=== PATIENT | female | born 1955 | race Caucasian/White ===

== ENCOUNTER 2018-06-08 12:41 | Inpatient (IN) | payer MEDICAID ==
[~2018-06-08] VITALS: Ht 162.6 cm; Wt 63.7 kg
[2018-06-08 12:50] VITALS: BP 140/76
--- NOTE | 2018-06-08 12:50 | NUR ---
ED Nurse Note: PT BROUGHT IN BY AMBULANCE FROM [facility]. AOX3 - PT NOT ORIENTED TO TIME. PER EMS, PT C/O 3 EPISODES OF DIARRHEA X LAST NIGHT. EMS REPORTS PT C/O LEFT KNEE PAIN AFTER FALL BUT PT DENIES FALL AND DENIES ANY PAIN AT THIS TIME. ABDOMEN NONDISTENDED AND NONTENDER TO PALPATION. ACTIVE BOWEL SOUNDS IN ALL QUADRANTS.
[2018-06-08] MEDS ORDERED: LITHIUM CARBON300 MG ORAL ×2 (12:57)
[2018-06-08] MEDS ORDERED: CHANTIX0.5 MG PO (12:57)
[2018-06-08] MEDS ORDERED: NICODERM 7MG/24H1 EA TD (12:57)
[2018-06-08] MEDS ORDERED: RISPERDAL2 MG ORAL (12:57)
[2018-06-08] MEDS ORDERED: LORAZEPAM1 MG ORAL (12:57)
[2018-06-08] MEDS ORDERED: BENZTROPINE ME0.5 MG PO (12:57)
[2018-06-08 13:50] LABS: BASOPHILS % (AUTO) 0.9 % (0.0-2.0); EOSINOPHILS % (AUTO) 1.1 % (0.0-3.0); HEMATOCRIT 45.2 % (37.0-47.0); HEMOGLOBIN 14.3 G/DL (12.0-16.0); LYMPHOCYTES % (AUTO) 14.4 % (20.0-45.0); MEAN CORPUSCULAR VOLUME 92 FL (80-99); MONOCYTES % (AUTO) 6.4 % (1.0-10.0); NEUTROPHILS % (AUTO) 77.2 % (45.0-75.0); PLATELET COUNT 231 K/UL (150-450); RED BLOOD COUNT 4.89 M/UL (4.20-5.40); WHITE BLOOD COUNT 12.2 K/UL (4.8-10.8)
--- NOTE | 2018-06-08 13:50 | NUR ---
ED Nurse Note: XRAY AT BEDSIDE.
[2018-06-08 14:00] LABS: ANION GAP 8 mmol/L (5-15); BLOOD UREA NITROGEN 11 mg/dL (7-18); CARBON DIOXIDE 27 MMOL/L (21-32); CHLORIDE 104 MMOL/L (98-107); CREATININE 0.7 MG/DL (0.55-1.30); POTASSIUM 3.6 MMOL/L (3.5-5.1); SODIUM 139 MMOL/L (136-145)
[2018-06-08 14:11] LABS: ALANINE AMINOTRANSFERASE 13 U/L (12-78); ALBUMIN 3.5 G/DL (3.4-5.0); ALBUMIN/GLOBULIN RATIO 0.9 (1.0-2.7); ALKALINE PHOSPHATASE 85 U/L (46-116); ASPARTATE AMINO TRANSFERASE 13 U/L (15-37); BILIRUBIN,TOTAL 0.5 MG/DL (0.2-1.0); CKMB 0.7 NG/ML (0.0-3.6); CREATINE KINASE 48 U/L (26-308)
--- NOTE | 2018-06-08 14:32 | Emergency Room Report ---
History of Present Illness General Chief Complaint: Diarrhea Source: Patient, Medical Record Present Illness HPI Patient presents with complaints of increased diarrhea decreased oral intake with nausea denies any chest pain or shortness of breath denies any vomiting Patient reports that she has progressively become more weak over the past few days Denies any dysuria or frequency denies any recent travel or trauma denies any blood in the stool denies any abdominal pain or cramping Allergies: Coded Allergies: No Known Allergies (Unverified , 06/08/18) Patient History Past Medical History: see triage record Pertinent Family History: none Reviewed Nursing Documentation: PMH: Agreed; PSxH: Agreed Nursing Documentation-PM Past Medical History: No History, Except For History Of Psychiatric Problem: Yes - Bipolar Hx Neurological Problems: Yes - Dementia Review of Systems All Other Systems: negative except mentioned in HPI Physical Exam Vital Signs Date Time Temp Pulse Resp B/P (MAP) Pulse Ox O2 Delivery O2 Flow Rate FiO2 06/08/18 12:45 97.5 75 14 134/73 94 Room Air Sp02 EP Interpretation: reviewed, normal General Appearance: well appearing, no apparent distress Head: normocephalic, atraumatic Eyes: bilateral eye PERRL, bilateral eye EOMI ENT: hearing grossly normal, TMs + canals normal, uvula midline, dry mucus membranes Neck: full range of motion, supple, no meningismus, no bony tend Respiratory: lungs clear, normal breath sounds, no rhonchi, no respiratory distress, no retraction, no accessory muscle use Cardiovascular #1: normal peripheral pulses, regular rate, rhythm, no edema, no gallop, no JVD, no murmur Gastrointestinal: normal bowel sounds, non tender, soft, no mass, no organomegaly, non-distended, no guarding, no hernia, no pulsatile mass, no rebound Genitourinary: no CVA tenderness Musculoskeletal: normal inspection Neurologic: oriented x3, responsive, delivery driver/customer service III-XII nml as tested, motor strength/ tone normal, sensory intact Psychiatric: other - flat affect Skin: normal color, no rash, warm/dry, palpation normal Lymphatic: normal inspection, no adenopathy Medical Decision Making Diagnostic Impression: Primary Impression: Diarrhea Additional Impressions: Dehydration Weakness ER Course Patient presents with multiple differentials Patient is complex requiring multiple blood work Differentials including but not limited to C. difficile, dehydration, diverticulitis Patient's blood work thus far are normal however patient has progressive weakness Is unable to ambulate and requires further inpatient care Labs Test 06/08/18 13:25 White Blood Count 12.2 K/UL (4.8-10.8) Red Blood Count 4.89 M/UL (4.20-5.40) Hemoglobin 14.3 G/DL (12.0-16.0) Hematocrit 45.2 % (37.0-47.0) Mean Corpuscular Volume 92 FL (80-99) Mean Corpuscular Hemoglobin 29.2 PG (27.0-31.0) Mean Corpuscular Hemoglobin Concent 31.6 G/DL (32.0-36.0) Red Cell Distribution Width 11.0 % (11.6-14.8) Platelet Count 231 K/UL (150-450) Mean Platelet Volume 7.7 FL (6.5-10.1) Neutrophils (%) (Auto) 77.2 % (45.0-75.0) Lymphocytes (%) (Auto) 14.4 % (20.0-45.0) Monocytes (%) (Auto) 6.4 % (1.0-10.0) Eosinophils (%) (Auto) 1.1 % (0.0-3.0) Basophils (%) (Auto) 0.9 % (0.0-2.0) Sodium Level 139 MMOL/L (136-145) Potassium Level 3.6 MMOL/L (3.5-5.1) Chloride Level 104 MMOL/L (98-107) Carbon Dioxide Level 27 MMOL/L (21-32) Anion Gap 8 mmol/L (5-15) Blood Urea Nitrogen 11 mg/dL (7-18) Creatinine 0.7 MG/DL (0.55-1.30) Estimat Glomerular Filtration Rate > 60 mL/min (>60) Glucose Level 92 MG/DL (74-106) Lactic Acid Level 0.80 mmol/L (0.4-2.0) Calcium Level 10.0 MG/DL (8.5-10.1) Total Bilirubin 0.5 MG/DL (0.2-1.0) Aspartate Amino Transf (AST/SGOT) 13 U/L (15-37) Alanine Aminotransferase (ALT/SGPT) 13 U/L (12-78) Alkaline Phosphatase 85 U/L (46-116) Total Creatine Kinase 48 U/L (26-308) Creatine Kinase MB 0.7 NG/ML (0.0-3.6) Creatine Kinase MB Relative Index 1.4 Troponin I 0.000 ng/mL (0.000-0.056) Total Protein 7.5 G/DL (6.4-8.2) Albumin 3.5 G/DL (3.4-5.0) Globulin 4.0 g/dL Albumin/Globulin Ratio 0.9 (1.0-2.7) Lipase 51 U/L (73-393) Rhythm Strip Diag. Results EP Interpretation: yes Rate: 60 Rhythm: NSR, no PVC's, no ectopy Chest X-Ray Diagnostic Results Chest X-Ray Diagnostic Results : Chest X-Ray Ordered: Yes # of Views/Limited/Complete: 1 View Indication: Chest Pain EP Interpretation: Yes Interpretation: no consolidation, no effusion, no pneumothorax Impression: No acute disease Electronically Signed by: Casper Devlin DO Last Vital Signs Date Time Temp Pulse Resp B/P (MAP) Pulse Ox O2 Delivery O2 Flow Rate FiO2 06/08/18 12:50 97.9 75 15 140/76 97 Room Air Status: improved Disposition: ADMITTED INPATIENT Condition: Serious Referrals: NON PHYSICIAN (PCP) Casper Devlin DO Jun 08, 2018 14:32
--- NOTE | 2018-06-08 14:33 | NUR ---
ED Nurse Note: URINE COLLECTED AND SENT TO LAB.
[2018-06-08 14:37] VITALS: BP 129/68
[2018-06-08 15:05] LABS: APPEARANCE,URINE CLEAR; BILIRUBIN, URINE NEGATIVE (NEGATIVE); GLUCOSE, URINE (UA) NEGATIVE (NEGATIVE); KETONES,URINE 2+ (NEGATIVE); LEUKOCYTE ESTERASE ,URINE 1+ (NEGATIVE); NITRITE,URINE NEGATIVE (NEGATIVE); PH,URINE 7 (4.5-8.0); PROTEIN,URINE NEGATIVE (NEGATIVE); UROBILINOGEN,URINE 1 MG/DL (0.0-1.0)
[2018-06-08 15:06] LABS: COLOR,URINE YELLOW
[2018-06-08 16:16] VITALS: BP 130/70
--- NOTE | 2018-06-08 16:19 | Diagnostic Imaging Report ---
Indication: Shortness of breath Technique: One view of the chest Comparison: none Findings: There is equivocal mild interstitial congestion. The heart size is upper limits normal. No focal airspace consolidation. Pleural spaces are clear. Impression: Equivocal mild interstitial congestion
--- NOTE | 2018-06-08 17:38 | NUR ---
ED Nurse Note: PER [facility] CHARGE, [facility] NOT READY TO ACCEPT PT. WILL CALL BACK IN 10 MINUTES.
--- NOTE | 2018-06-08 18:01 | NUR ---
ED Nurse Note: [facility] CALLED FOR PT REPORT. REPORT GIVEN TO [facility]OU[facility]. PT TAKEN UP TO [facility] VIA GURNEY WITH ALL BELONGINGS ACCOMPANIED BY EMT. VSS.
[2018-06-08 18:20] VITALS: BP 140/77
--- NOTE | 2018-06-08 18:49 | NUR ---
NURSE NOTES: Patient arrived to the unite around 182. Vitals taken upon arraival to the unite. IV R-Hand flushes well. Skin intact. Transporter left patient in room without signing the belonging list, I called ER so that the transporter to comeback so that we sign the belonging lists. On the list its indicated that patient has reading glass, however the items patient transferred with doesn't have the glass. I called ER so that the nurse who filled out the list to sign the paper, Lier came to the floor and removed the glass as not part of belongings. Liner stated patient said she has reading glass, however nurse didn't see the glass. So reading glass isn't part of the belongings. Skin intact. Bed at lowest position, side rails up x2, breaks engaged. Will keep monitoring.
--- NOTE | 2018-06-08 19:48 | NUR ---
HAND-OFF: Report given to [facility] Osullivan.
[2018-06-08 20:00] VITALS: BP 148/84
[2018-06-08] MEDS ORDERED: Acetaminophen 500mg (ES) tab ORAL PRN (20:00)
--- NOTE | 2018-06-08 20:10 | NUR ---
NURSE NOTES: Patient in bed asleep easily arousable to name, no s/s distress noted. Pt stated she had last diarrhea last night, denies any discomfort/abdominal pain. Received orders from Dr Knowles, noted and carried out.
--- NOTE | 2018-06-08 21:15 | NUR ---
NURSE NOTES: Spoke to Dr Randall, received order to continue SNF pysch medications.
[2018-06-08] MEDS: LORazepam 1mg tab ORAL SCH (22:11)
[2018-06-09] VITALS (9 sets, daily range): BP systolic 105–141; BP diastolic 57–106
[2018-06-09 07:03] LABS: EOSINOPHILS % (AUTO) 3.6 % (0.0-3.0); HEMATOCRIT 39.9 % (37.0-47.0); HEMOGLOBIN 13.1 G/DL (12.0-16.0); LYMPHOCYTES % (AUTO) 24.9 % (20.0-45.0); MEAN CORPUSCULAR VOLUME 92 FL (80-99); MONOCYTES % (AUTO) 7.4 % (1.0-10.0); NEUTROPHILS % (AUTO) 63.1 % (45.0-75.0); PLATELET COUNT 218 K/UL (150-450); RED BLOOD COUNT 4.34 M/UL (4.20-5.40); RED CELL DISTRIBUTION WIDTH 10.9 % (11.6-14.8); WHITE BLOOD COUNT 9.6 K/UL (4.8-10.8)
--- NOTE | 2018-06-09 07:08 | NUR ---
HAND-OFF: Report given to Jeana BEVERLY.
--- NOTE | 2018-06-09 07:15 | NUR ---
NURSE NOTES: Patient asleep, on room air, no sign of distress and shortness of breath. IV R-Hand flush well. Bed at lowest position, side rails up, breaks engaged. Call light within reach. Will keep monitoring.
[2018-06-09 07:23] LABS: ALANINE AMINOTRANSFERASE 12 U/L (12-78); ALBUMIN 3.1 G/DL (3.4-5.0); ALBUMIN/GLOBULIN RATIO 0.9 (1.0-2.7); ALKALINE PHOSPHATASE 74 U/L (46-116); ANION GAP 8 mmol/L (5-15); ASPARTATE AMINO TRANSFERASE 13 U/L (15-37); BILIRUBIN,TOTAL 0.5 MG/DL (0.2-1.0); BLOOD UREA NITROGEN 9 mg/dL (7-18); CALCIUM 9.3 MG/DL (8.5-10.1); CARBON DIOXIDE 26 MMOL/L (21-32); CHLORIDE 108 MMOL/L (98-107); CREATININE 0.7 MG/DL (0.55-1.30); POTASSIUM 3.7 MMOL/L (3.5-5.1); SODIUM 142 MMOL/L (136-145)
[2018-06-09] MEDS: LORazepam 1mg tab ORAL SCH ×2 (09:13→17:23)
--- NOTE | 2018-06-09 11:40 | Consultation ---
History of Present Illness General Chief Complaint: Diarrhea Present Illness HPI 62 yo female with hx of schizoaffective do who presents with complaints of increased diarrhea and n. the pt was agitated and pacing around the unit. The pt is easily agitated and not following the commands. the pt is unable to understand, process or appreciate the info given to her. the pt is delusional and disorganized. Allergies: Coded Allergies: No Known Allergies (Unverified , 06/08/18) Medication History Scheduled Benztropine Mesylate* (Cogentin*), 0.5 MG PO BID, (Reported) [place] Carbonate* ([place]*), 300 MG ORAL DAILY, (Reported) [place] Carbonate* ([place]*), 600 MG ORAL BEDTIME, (Reported) Lorazepam* (Lorazepam*), 1 MG ORAL BID, (Reported) Nicotine (Nicotine Patch), 7 MG TD DAILY, (Reported) Risperidone* (Risperdal*), 2 MG ORAL BID, (Reported) Varenicline Tartrate (Chantix), 0.5 MG PO BID, (Reported) Patient History Limited by: medical condition History Provided By: Medical Record, PMD Healthcare decision maker Resuscitation status Advanced Directive on File Past Medical/Surgical History Past Medical/Surgical History: (1) Weakness (2) Dehydration (3) Diarrhea Review of Systems Psychiatric: Reports: prior hx, anxiety, depressed feelings, hallucinations Physical Exam General Appearance: alert, confused, severe distress, agitated Last 24 Hour Vital Signs Date Time Temp Pulse Resp B/P (MAP) Pulse Ox O2 Delivery O2 Flow Rate FiO2 06/09/18 09:00 Room Air 06/09/18 08:00 98.0 64 18 127/71 (89) 99 06/09/18 04:00 98.1 65 18 105/60 (75) 95 06/09/18 00:00 97.5 63 20 108/72 (84) 95 06/08/18 21:00 Room Air 06/08/18 20:00 97.2 82 18 148/84 (105) 99 06/08/18 20:00 Room Air 06/08/18 18:20 97.9 91 18 140/77 (98) 96 06/08/18 17:59 98.2 72 21 126/70 98 Room Air 06/08/18 16:16 98.0 68 18 130/70 100 Room Air 06/08/18 14:37 98.0 65 16 129/68 100 Room Air 06/08/18 12:50 97.9 75 15 140/76 97 Room Air 06/08/18 12:45 97.5 75 14 134/73 94 Room Air Intake and Output 06/08/18 06/09/18 19:00 07:00 Intake Total 1000 ml 240 ml Balance 1000 ml 240 ml Intake Oral 240 ml IV Total 1000 ml # Voids 1 2 Laboratory Tests Test 06/08/18 13:25 06/08/18 14:25 06/09/18 05:10 White Blood Count 12.2 K/UL (4.8-10.8) H 9.6 K/UL (4.8-10.8) Red Blood Count 4.89 M/UL (4.20-5.40) 4.34 M/UL (4.20-5.40) Hemoglobin 14.3 G/DL (12.0-16.0) 13.1 G/DL (12.0-16.0) Hematocrit 45.2 % (37.0-47.0) 39.9 % (37.0-47.0) Mean Corpuscular Volume 92 FL (80-99) 92 FL (80-99) Mean Corpuscular Hemoglobin 29.2 PG (27.0-31.0) 30.2 PG (27.0-31.0) Mean Corpuscular Hemoglobin Concent 31.6 G/DL (32.0-36.0) L 32.8 G/DL (32.0-36.0) Red Cell Distribution Width 11.0 % (11.6-14.8) L 10.9 % (11.6-14.8) L Platelet Count 231 K/UL (150-450) 218 K/UL (150-450) Mean Platelet Volume 7.7 FL (6.5-10.1) 7.7 FL (6.5-10.1) Neutrophils (%) (Auto) 77.2 % (45.0-75.0) H 63.1 % (45.0-75.0) Lymphocytes (%) (Auto) 14.4 % (20.0-45.0) L 24.9 % (20.0-45.0) Monocytes (%) (Auto) 6.4 % (1.0-10.0) 7.4 % (1.0-10.0) Eosinophils (%) (Auto) 1.1 % (0.0-3.0) 3.6 % (0.0-3.0) H Basophils (%) (Auto) 0.9 % (0.0-2.0) 1.0 % (0.0-2.0) Sodium Level 139 MMOL/L (136-145) 142 MMOL/L (136-145) Potassium Level 3.6 MMOL/L (3.5-5.1) 3.7 MMOL/L (3.5-5.1) Chloride Level 104 MMOL/L (98-107) 108 MMOL/L (98-107) H Carbon Dioxide Level 27 MMOL/L (21-32) 26 MMOL/L (21-32) Anion Gap 8 mmol/L (5-15) 8 mmol/L (5-15) Blood Urea Nitrogen 11 mg/dL (7-18) 9 mg/dL (7-18) Creatinine 0.7 MG/DL (0.55-1.30) 0.7 MG/DL (0.55-1.30) Estimat Glomerular Filtration Rate > 60 mL/min (>60) > 60 mL/min (>60) Glucose Level 92 MG/DL (74-106) 85 MG/DL (74-106) Lactic Acid Level 0.80 mmol/L (0.4-2.0) Calcium Level 10.0 MG/DL (8.5-10.1) 9.3 MG/DL (8.5-10.1) Total Bilirubin 0.5 MG/DL (0.2-1.0) 0.5 MG/DL (0.2-1.0) Aspartate Amino Transf (AST/SGOT) 13 U/L (15-37) L 13 U/L (15-37) L Alanine Aminotransferase (ALT/SGPT) 13 U/L (12-78) 12 U/L (12-78) Alkaline Phosphatase 85 U/L (46-116) 74 U/L (46-116) Total Creatine Kinase 48 U/L (26-308) Creatine Kinase MB 0.7 NG/ML (0.0-3.6) Creatine Kinase MB Relative Index 1.4 Troponin I 0.000 ng/mL (0.000-0.056) Total Protein 7.5 G/DL (6.4-8.2) 6.6 G/DL (6.4-8.2) Albumin 3.5 G/DL (3.4-5.0) 3.1 G/DL (3.4-5.0) L Globulin 4.0 g/dL 3.5 g/dL Albumin/Globulin Ratio 0.9 (1.0-2.7) L 0.9 (1.0-2.7) L Lipase 51 U/L (73-393) L Urine Color Yellow Urine Appearance Clear Urine pH 7 (4.5-8.0) Urine Specific [place] 1.005 (1.005-1.035) Urine Protein Negative (NEGATIVE) Urine Glucose (UA) Negative (NEGATIVE) Urine Ketones 2+ (NEGATIVE) H Urine Blood Negative (NEGATIVE) Urine Nitrite Negative (NEGATIVE) Urine Bilirubin Negative (NEGATIVE) Urine Urobilinogen 1 MG/DL (0.0-1.0) H Urine Leukocyte Esterase 1+ (NEGATIVE) H Urine RBC 0-2 /HPF (0 - 2) Urine WBC 0-2 /HPF (0 - 2) Urine Squamous Epithelial Cells Few /LPF (NONE/OCC) Urine Bacteria Few /HPF (NONE) Height (Feet): 5 Height (Inches): 4.00 Weight (Pounds): 140 Medications Current Medications Medications (Trade) Dose Ordered Sig/Marina Route PRN Reason Start Time Stop Time Status Last Admin Dose Admin Acetaminophen (Tylenol) 500 mg Q4H PRN ORAL Mild Pain/Temp > 100.5 06/08/18 20:00 07/08/18 19:59 Diphenhydramine HCl (Benadryl) 50 mg ONCE ONCE IM 06/09/18 11:45 06/09/18 11:46 UNV Haloperidol Lactate (Haldol) 10 mg ONCE ONCE IM 06/09/18 11:45 06/09/18 11:46 UNV [place] Carbonate ([place] Carbonate) 300 mg DAILY ORAL 06/09/18 09:00 07/09/18 08:59 06/09/18 09:13 [place] Carbonate ([place] Carbonate) 600 mg BEDTIME ORAL 06/09/18 21:00 07/09/18 20:59 Lorazepam (Ativan 2mg/ml 1ml) 2 mg ONCE ONCE IM 06/09/18 11:45 06/09/18 11:46 UNV Lorazepam (Ativan) 1 mg BID ORAL 06/08/18 22:00 06/15/18 21:59 06/09/18 09:13 Risperidone (RisperDAL) 2 mg BID ORAL 06/08/18 22:00 07/08/18 21:59 06/09/18 09:13 Assessment/Plan Problem List: (1) Schizoaffective disorder, bipolar type ICD Codes: F25.0 - Schizoaffective disorder, bipolar type SNOMED: 71060695 Assessment/Plan risperdal 2mg po bid lithium 300mg po qam lithium 600mg po qhs ativan prn the pt lacks capacity to leave ama lithium level Bradford Randall MD Jun 09, 2018 11:40
[2018-06-09] MEDS ORDERED: LORazepam Inj 2mg/ml 1ml IM SCH (11:45)
[2018-06-09] MEDS ORDERED: Haloperidol 5mg/ml Inj IM SCH (11:45)
[2018-06-09] MEDS ORDERED: DiphenhydrAMINE 50mg/ml Inj IM SCH (11:45)
--- NOTE | 2018-06-09 14:44 | NUR ---
HAND WORKERACTIVITIES AIDE 62 YO FEMALE BIBA FROM [facility] TO ER CC DIARRHEA X TWO DAYS SI: DIARRHEA, DEHYDRATION T. 97.6 HR 75 RR 14 B/P 134/73 WBC 12.2 CXR= EQUIVOCAL MILD INTERSTITIAL CONGESTION IS: IV BOLUS NS X 1 LITER ADMITTED TO MED/SURG @ 2187 MED/SURG STATUS DCP RETURN HOME
--- NOTE | 2018-06-09 15:20 | NUR ---
CHARGE NURSE NOTES: PATIENT FELL AT 1515 IN SIDE LYING POSITION, LANDING ON ARM/THIGH. PATIENT DID NOT HIT HEAD. THIS RN WITNESSED FALL. THIS RN WAS ACROSS HALLWAY AND TURNED AROUND AND SAW PATIENT FALL (PATIENT WAS ALREADY STANDING AND WALKING TOWARDS BATHROOM WHEN THIS RN TURNED AROUND). PATIENT HAD GOTTEN UP TO USE RESTROOM BUT WEAK. PATIENT WAS NOT ON OLLIE BED AND WAS PREVIOUSLY AMBULATING IN UNIT ALL MORNING, ASKING TO BE DISCHARGED. PATIENT STATING ARM HURTS, NOTIFIED THAT PATIENT FELL ON ARM AND XRAY ORDERED. POST FALL ASSESSMENT WILL BE DONE. PRIMARY RN NOTIFIED. DR. RAJPUT AND NEWS INTERN KEVIN TROY MADE AWARE. AFTER SAFELY GETTING PATIENT BACK IN BED, CHANGED PATIENT ROOM CLOSER TO NURSES STATION AND PUT ON OLLIE BED WITH BED ALARM ON. WILL CONTINUE TO MONITOR.
--- NOTE | 2018-06-09 16:15 | NUR ---
*-* INSURANCE *-* ALL CLINICALS AND REVIEWS FAXED TO: IPA: [facility] NEW DAY ADMISSION REPORTED TO DANI [phone] AUTH#: PND NCM: PND F#: [phone] PLEASE FAX CLINICALS TO ABOVE #
--- NOTE | 2018-06-09 16:19 | NUR ---
NURSE NOTES: Patient's next of kin, Patricia Magana, notified regarding patient's fall.
--- NOTE | 2018-06-09 17:40 | Cardiology Report ---
APPROVED REPORT EKG Measurement Heart [id number] VT [id number] Normal sinus rhythm Normal ECG
--- NOTE | 2018-06-09 19:17 | NUR ---
HAND-OFF: Report given to [facility] Skinner.
--- NOTE | 2018-06-09 19:38 | NUR ---
NURSE NOTES: Patient resting in bed, awake and alert, no s/s acute distress noted. Denies any pain or discomfort at this time. Sitter at the bedside for safety. Bed in lowest position for safety, bed alarm on. Will continue plan of care.
--- NOTE | 2018-06-09 20:00 | Consultation ---
DATE OF CONSULTATION: 06/09/2018 NOTE: UNCLEAR AUDIO INFECTIOUS DISEASE CONSULT CONSULTING PHYSICIAN: Josh Shaffer M.D. PRIMARY ATTENDING PHYSICIAN: Casper Knowles M.D. REASON FOR CONSULT: Diarrhea. HISTORY OF PRESENT ILLNESS: This is a 62-year-old white female who is a half-way resident admitted yesterday because of diarrhea, decreased oral intake, and mild leukocytosis at the time of admission. She has a history of psychiatric problem and not a source of history. PAST MEDICAL HISTORY: Significant for schizoaffective bipolar disorder. ALLERGIES: No known drug allergy. MEDICATIONS: [place], lorazepam, and Tylenol. SOCIAL HISTORY: Single, half-way resident. No other history obtainable. PHYSICAL EXAMINATION: VITAL SIGNS: Temperature 97.4,, and blood pressure 124/92. GENERAL APPEARANCE: Seems to have normal weight. No acute distress. HEAD AND NECK: [place] conjunctivae. HEART: Normal rate. LUNGS: Clear. ABDOMEN: Soft and nontender. EXTREMITIES: No edema. LABORATORY AND DIAGNOSTIC DATA: WBC today is 9.6, hemoglobin 13.1, hematocrit 39.9, and platelets 218. Sodium 142, potassium 3.7, chloride 108, bicarbonate 26, BUN 9, and creatinine 0.7. UA showed wbc's of 0-2. IMPRESSION: 1. Diarrhea. 2. Leukocytosis that is resolved. 3. Schizoaffective bipolar disorder. RECOMMENDATION: Observe off antibiotics. We will follow C. difficile toxin test, MRSA screen, VRE screen and CRE screen. At the end of my exam, I thank Dr. Knowles for involving me in the care of this patient. Josh Shaffer M.D. DR: GREGORY JOB#: [id number] CC: SANDHYA
[2018-06-10] VITALS: BP 118/69
[2018-06-10 03:46] VITALS: BP 115/57
--- NOTE | 2018-06-10 05:00 | History and Physical Report ---
DATE OF ADMISSION: 06/08/2018 HISTORY OF PRESENT ILLNESS: The patient is admitted because of diarrhea and dehydration. The patient was also on psychotropic medications, apparently agitated, pacing in the hallway, and Dr. Randall has ordered a cocktail. I think the patient gets associated, but incoherent, and I cannot get any reliable history from her due to given the psychotropic medicine for help due to her agitation, but apparently the patient originally came in because of increased diarrhea and decreased oral intake with nausea and denies any shortness of breath. Denies cough. Denies fever or chills. Denies any dysuria as well. PAST MEDICAL HISTORY: Bipolar, dementia, and possible psychosis. PAST SURGICAL HISTORY: Unable to obtain. ALLERGIES: No known allergies. SOCIAL HISTORY: Unable to obtain. REVIEW OF SYSTEMS: Unable to obtain. The patient for agitation was given a cocktail. Due to the psychotropic medicine, it has just been recently administered. PHYSICAL EXAMINATION: VITAL SIGNS: Temperature 97.7 degrees, pulse is 78, and blood pressure 140/90. HEENT: PERRLA. NECK: Supple. No lymphadenopathy. CHEST: Clear to auscultation CARDIOVASCULAR: Regular rate and rhythm. No murmurs or extra sounds. GASTROINTESTINAL: Soft and nontender. Positive bowel sounds. No organomegaly. EXTREMITIES: No edema. Reflexes on both sides. CENTRAL NERVOUS SYSTEM: The patient has garbled speech because of psychotropic medications and is confused, and I cannot get any reliable history at this point. LABORATORY DATA: WBC of 12.2, hemoglobin of 14.3, and platelets of 231,000. Sodium 139, potassium 3.6, BUN of 11, creatinine 0.7, and glucose of 92. ASSESSMENT AND PLAN: Dehydration, diarrhea, psychiatric history, and agitation. I have asked Dr. Pascual, Dr. Josh Shaffer, and Dr. Randall to see the patient for the above-mentioned diagnosis. Antibiotics per Dr. Randall and for agitation, psychosis, and mood disorder, Dr. Randall will help us out in the treatment of the psychiatric condition and for borderline potassium, I have consulted Dr. Pascual for further management as well to replace the fluid that was lost in diarrhea. Casper Knowles M.D. DR: SUDEEP JOB#: [id number] CC:
--- NOTE | 2018-06-10 07:23 | NUR ---
HAND-OFF: Report given to Patricia BEVERLY.
[2018-06-10 07:57] VITALS: BP 139/75
--- NOTE | 2018-06-10 08:00 | NUR ---
NURSE NOTES: Received patient in bed, resting and alert to name and place. Patient denies pain. Sitter at bedside. No signs of respiratory distress. Patient in bed, bed alarm on. Call light within reach. Will continue to monitor.
[2018-06-10] MEDS: LORazepam 1mg tab ORAL SCH ×2 (08:01→17:39)
--- NOTE | 2018-06-10 10:10 | Diagnostic Imaging Report ---
Indications: Pain, status post fall Technique: Two views of the right forearm Comparison: None Findings: No acute fractures. No dislocations. No radiopaque foreign body Impression: Negative This agrees with the preliminary interpretation provided overnight by [facility] teleradiology service.
--- NOTE | 2018-06-10 10:13 | Diagnostic Imaging Report ---
Indication: Pain, status post fall Technique: 3 views of the right shoulder Comparison: none Findings: No acute fractures. No dislocations. The joint spaces are preserved. There is minimal acromioclavicular joint degeneration. Impression: No acute process This agrees with the preliminary interpretation provided overnight by [facility] teleradiology service.
--- NOTE | 2018-06-10 10:47 | General Progress Note ---
Assessment/Plan Problem List: (1) Schizoaffective disorder, bipolar type ICD Codes: F25.0 - Schizoaffective disorder, bipolar type SNOMED: 09250015 Status: progressing Assessment/Plan Risperdal 2mg po bid lithium 900mg po qhs Ativan prn the pt lacks capacity to leave ama lithium level is pending Subjective Neurologic/Psychiatric: Reports: anxiety, depressed, emotional problems Allergies: Coded Allergies: No Known Allergies (Unverified , 06/08/18) Subjective the pt has been calm and her behavior is controlled. the pt at times gets up to go to the bathroom. sitter in the room Objective Last 24 Hour Vital Signs Date Time Temp Pulse Resp B/P (MAP) Pulse Ox O2 Delivery O2 Flow Rate FiO2 06/10/18 09:00 Room Air 06/10/18 07:57 98.9 82 19 139/75 (96) 06/10/18 03:46 98.0 60 18 115/57 (76) 95 06/10/18 00:00 97.5 65 20 118/69 (85) 95 06/09/18 21:00 Room Air 06/09/18 20:00 97.7 65 18 122/64 (83) 94 06/09/18 16:30 97.9 57 18 114/57 (76) 97 06/09/18 16:00 97.0 55 18 126/66 (86) 96 06/09/18 15:45 97.0 60 18 138/106 (117) 96 06/09/18 15:15 97.7 78 18 141/90 (107) 100 06/09/18 15:15 97.7 100 Room Air 06/09/18 12:00 97.4 93 19 124/92 (103) 97 Intake and Output 06/09/18 06/10/18 19:00 07:00 Intake Total 560 ml 360 ml Balance 560 ml 360 ml Intake Oral 560 ml 360 ml # Voids 2 3 Height (Feet): 5 Height (Inches): 4.00 Weight (Pounds): 140 General Appearance: WD/WN, no apparent distress, alert, agitated - less agitated, overweight Bradford Randall MD Jun 10, 2018 10:47
--- NOTE | 2018-06-10 11:25 | GI Initial Consult Note ---
History of Present Illness General Date patient seen: Jun 10, 2018 Time patient seen: 11:25 Reason for Hospitalization: Diarrhea Referring physician: AYESHA RAJPUT Reason for Consultation: Severe diarrhea Present Illness HPI Patient presents with complaints of increased diarrhea decreased oral intake with nausea denies any chest pain or shortness of breath denies any vomiting Patient reports that she has progressively become more weak over the past few days Denies any dysuria or frequency denies any recent travel or trauma denies any blood in the stool denies any abdominal pain or cramping GI consulted for persistent diarrhea. Initial HPI as noted above. Patient seen , awake alert and oriented x3. Patient has complaint of persistent diarrhea for approximately 2 weeks. Patient denied any hematochezia or melena. The patient denies any recent travels or changes in dietary habits. The patient stated she had a colonoscopy approximately 2 months ago at [facility]. Labs reviewed; no leukocytosis, no anemia, no transaminitis. Home Meds Reported Medications Nicotine (Nicotine Patch) 1 Each Patch.td24, 7 MG TD DAILY, PATCH 06/08/18 Varenicline Tartrate (CHANTIX) 0.5 Mg Tablet, 0.5 MG PO BID, TAB 06/08/18 Risperidone* (RISPERDAL*) 2 Mg Tablet, 2 MG ORAL BID, #30 TAB 0 Refills 06/08/18 Lorazepam* (LORAZEPAM*) 1 Mg Tablet, 1 MG ORAL BID, TAB 06/08/18 Early Carbonate* (LITHIUM*) 300 Mg Capsule, 600 MG ORAL BEDTIME, CAP 0 Refills 06/08/18 Early Carbonate* (LITHIUM*) 300 Mg Capsule, 300 MG ORAL DAILY, CAP 0 Refills 06/08/18 Benztropine Mesylate* (COGENTIN*) 0.5 Mg Tablet, 0.5 MG PO BID, TAB 06/08/18 Med list reviewed/reconciled: Yes Allergies: Coded Allergies: No Known Allergies (Unverified , 06/08/18) Patient History History Provided By: Patient, Medical Record PM Narrative Past Medical History: No History, Except For History Of Psychiatric Problem: Yes - Bipolar Hx Neurological Problems: Yes - Dementia Social History: Reports: smoking Review of Systems All Other Systems: negative except mentioned in HPI Physical Exam Vital Signs Date Time Temp Pulse Resp B/P (MAP) Pulse Ox O2 Delivery O2 Flow Rate FiO2 06/08/18 12:45 97.5 75 14 134/73 94 Room Air Sp02 EP Interpretation: reviewed, normal General Appearance: well appearing, no apparent distress, alert Head: normocephalic EENT: PERRL/EOMI, normal ENT inspection Neck: supple Respiratory: normal breath sounds, no respiratory distress Cardiovascular: normal rate Gastrointestinal: normal inspection, non tender, soft, normal bowel sounds, non -distended Rectal: deferred Genitourinary: no CVA tenderness Musculoskeletal: normal inspection, back normal Neurologic: normal inspection, alert, oriented x3, responsive Psychiatric: normal inspection, judgement/insight normal, memory normal Skin: normal inspection, normal color, no rash, warm/dry, palpation normal, well hydrated Lymphatic: normal inspection, no adenopathy Current Medications Current Medications Medications (Trade) Dose Ordered Sig/Marian Route PRN Reason Start Time Stop Time Status Last Admin Dose Admin Acetaminophen (Tylenol) 500 mg Q4H PRN ORAL Mild Pain/Temp > 100.5 06/08/18 20:00 07/08/18 19:59 Early Carbonate (Early Carbonate) 900 mg BEDTIME ORAL 06/09/18 21:00 07/09/18 20:59 06/09/18 21:15 Lorazepam (Ativan) 1 mg BID ORAL 06/08/18 22:00 06/15/18 21:59 06/10/18 08:01 Risperidone (RisperDAL) 2 mg BID ORAL 06/08/18 22:00 07/08/18 21:59 06/10/18 08:01 GI: Plan Problems: (1) Electrolyte imbalance (2) Diarrhea (3) Weakness (4) Dehydration Plan Collect for C. difficile Imodium prn if cdiff negative Okay to advance diet Prophylactic antibiotics IV and p.o. hydration plus electrolyte correction PPI Zofran as needed Follow labs No plans for GI procedures given recent history of colonoscopy Discussed with Dr. Mendes. Thank you for this patient referral, we will follow. The patient was seen and examined at bedside and all new and available data was reviewed in the patients chart. I agree with the above findings, impression and plan. (Patient seen earlier today. Signature stamp does not reflect patient encounter time.). - MD Perri Martin,[facility] CenterTorsten PETROLEUM SUPPLY SPECIALIST Jun 10, 2018 11:25
[2018-06-10 12:00] VITALS: BP 139/87
--- NOTE | 2018-06-10 13:00 | Infectious Diseases Prog Note ---
Assessment/Plan Assessment/Plan A; 1. Diarrhea. 2. Leukocytosis that is resolved. 3. Schizoaffective bipolar disorder. P: Continue Flagyl Will f/u C. difficile test Subjective Constitutional: Reports: no symptoms Respiratory: Reports: no symptoms Cardiovascular: Reports: no symptoms Gastrointestinal/Abdominal: Reports: diarrhea Allergies: Coded Allergies: No Known Allergies (Unverified , 06/08/18) Objective Vital Signs Last 24 Hour Vital Signs Date Time Temp Pulse Resp B/P (MAP) Pulse Ox O2 Delivery O2 Flow Rate FiO2 06/10/18 09:00 Room Air 06/10/18 07:57 98.9 82 19 139/75 (96) 06/10/18 03:46 98.0 60 18 115/57 (76) 95 06/10/18 00:00 97.5 65 20 118/69 (85) 95 06/09/18 21:00 Room Air 06/09/18 20:00 97.7 65 18 122/64 (83) 94 06/09/18 16:30 97.9 57 18 114/57 (76) 97 06/09/18 16:00 97.0 55 18 126/66 (86) 96 06/09/18 15:45 97.0 60 18 138/106 (117) 96 06/09/18 15:15 97.7 78 18 141/90 (107) 100 06/09/18 15:15 97.7 100 Room Air Height (Feet): 5 Height (Inches): 4.00 Weight (Pounds): 140 General Appearance: no acute distress HEENT: mucous membranes moist Respiratory/Chest: lungs clear Cardiovascular: normal rate Abdomen: soft, non tender Extremities: no edema Neurologic/Psychiatric: alert, responsive Microbiology Date/Time Source Procedure Growth Status 06/08/18 13:30 Blood Blood Culture - Preliminary NO GROWTH AFTER 24 HOURS Resulted 06/08/18 13:20 Blood Blood Culture - Preliminary NO GROWTH AFTER 24 HOURS Resulted Current Medications Medications (Trade) Dose Ordered Sig/Marina Route PRN Reason Start Time Stop Time Status Last Admin Dose Admin Acetaminophen (Tylenol) 500 mg Q4H PRN ORAL Mild Pain/Temp > 100.5 06/08/18 20:00 07/08/18 19:59 [place] Carbonate ([place] Carbonate) 900 mg BEDTIME ORAL 06/09/18 21:00 07/09/18 20:59 06/09/18 21:15 Lorazepam (Ativan) 1 mg BID ORAL 06/08/18 22:00 06/15/18 21:59 06/10/18 08:01 Metronidazole (Flagyl) 500 mg Q8HR ORAL 06/10/18 14:00 06/17/18 13:59 Risperidone (RisperDAL) 2 mg BID ORAL 06/08/18 22:00 07/08/18 21:59 06/10/18 08:01 Josh Shaffer MD Jun 10, 2018 13:00
--- NOTE | 2018-06-10 14:06 | General Progress Note ---
Assessment/Plan Problem List: (1) Dehydration ICD Codes: E86.0 - Dehydration SNOMED: 79454703 (2) Weakness ICD Codes: R53.1 - Weakness SNOMED: 92139866 (3) Schizoaffective disorder, bipolar type ICD Codes: F25.0 - Schizoaffective disorder, bipolar type SNOMED: 97405134 (4) Diarrhea ICD Codes: R19.7 - Diarrhea, unspecified SNOMED: 26071966 (5) Electrolyte imbalance ICD Codes: E87.8 - Other disorders of electrolyte and fluid balance, not elsewhere classified SNOMED: 593974233 Status: progressing Assessment/Plan afebrile diarrhea dehyration replace w fluids diarrhea work up in progress push fluids Subjective ROS Limited/Unobtainable: Yes Constitutional: Reports: no symptoms Allergies: Coded Allergies: No Known Allergies (Unverified , 06/08/18) Objective Last 24 Hour Vital Signs Date Time Temp Pulse Resp B/P (MAP) Pulse Ox O2 Delivery O2 Flow Rate FiO2 06/10/18 09:00 Room Air 06/10/18 07:57 98.9 82 19 139/75 (96) 06/10/18 03:46 98.0 60 18 115/57 (76) 95 06/10/18 00:00 97.5 65 20 118/69 (85) 95 06/09/18 21:00 Room Air 06/09/18 20:00 97.7 65 18 122/64 (83) 94 06/09/18 16:30 97.9 57 18 114/57 (76) 97 06/09/18 16:00 97.0 55 18 126/66 (86) 96 06/09/18 15:45 97.0 60 18 138/106 (117) 96 06/09/18 15:15 97.7 78 18 141/90 (107) 100 06/09/18 15:15 97.7 100 Room Air Intake and Output 06/09/18 06/10/18 19:00 07:00 Intake Total 560 ml 360 ml Balance 560 ml 360 ml Intake Oral 560 ml 360 ml # Voids 2 3 Height (Feet): 5 Height (Inches): 4.00 Weight (Pounds): 140 EENT: PERRL/EOMI Neck: supple Cardiovascular: normal rate Respiratory/Chest: lungs clear Abdomen: soft Casper Knowles MD Jun 10, 2018 14:06
[2018-06-10] MEDS: metroNIDAZOLE 500mg tab ORAL SCH ×2 (14:37→21:59)
--- NOTE | 2018-06-10 14:38 | NUR ---
ELEMENTARY PRINCIPALMEDICAL COST CONSULTANT SI: DIARRHEA,DEHYDRATION T. 98.9 HR 82 RR 19 B/P 139/71 NO FRACTURE IS: FLAGYL PO LITHIUM PO RISPERDAL PO MED/SURG STATUS
[2018-06-10 16:00] VITALS: BP 130/77
--- NOTE | 2018-06-10 19:30 | NUR ---
NURSE NOTES: RECEIVED PATIENT LYING IN BED, APPEAR TO BE ASLEEP, EASILY AWAKENED, DENIES PAIN, IV INTACT TO RIGHT AC/GAUGE 24, NO REDNESS/SWELLING NOTED. NO SIGNS AND SYMPTOMS OF ACUTE CARDIO RESPIRATORY DISTRESS/SHORTNESS OF BREATH, DENIES CHEST PAIN. NO REPORT OF GI DISCOMFORT, NO N/V/D, ABDOMEN SOFT/BOWEL SOUNDS AUDIBLE, ENCOURAGE PO FLUIDS, TOLERATED WELL. SIDE RAILS UP X3/BED IN LOWEST POSITION FOR SAFETY, CALL LIGHT WITHIN REACH. SITTER AT BEDSIDE FOR PATIENT SAFETY. NAD.
--- NOTE | 2018-06-10 19:49 | NUR ---
HAND-OFF: Report given to ARELY Tyler.
[2018-06-10 20:00] VITALS: BP 108/77
--- NOTE | 2018-06-10 20:30 | NUR ---
NURSE NOTES: Received a report from ARELY Tyler. Pt is in stable condition. AAOX2. Able to make needs known. Sitter at the bedside. No c/o pain/discomfort. IV site site is patent and intact. Bed in lowest position. Bed alarm is on. Call light within reach. Will continue to monitor.
--- NOTE | 2018-06-10 20:45 | NUR ---
HAND-OFF: Report given to RUSH CEE.
[2018-06-11] VITALS: BP 122/69
[2018-06-11 04:00] VITALS: BP 132/83
[2018-06-11] MEDS: metroNIDAZOLE 500mg tab ORAL SCH ×2 (05:01→13:11)
[2018-06-11 07:09] LABS: EOSINOPHILS % (AUTO) 3.1 % (0.0-3.0); HEMATOCRIT 41.2 % (37.0-47.0); HEMOGLOBIN 13.4 G/DL (12.0-16.0); LYMPHOCYTES % (AUTO) 19.2 % (20.0-45.0); MEAN CORPUSCULAR VOLUME 91 FL (80-99); MONOCYTES % (AUTO) 8.1 % (1.0-10.0); NEUTROPHILS % (AUTO) 68.6 % (45.0-75.0); PLATELET COUNT 231 K/UL (150-450); RED BLOOD COUNT 4.53 M/UL (4.20-5.40); RED CELL DISTRIBUTION WIDTH 11.1 % (11.6-14.8)
--- NOTE | 2018-06-11 07:30 | NUR ---
HAND-OFF: Report given to RUSH Pfeiffer.
[2018-06-11 07:38] LABS: ANION GAP 9 mmol/L (5-15); BLOOD UREA NITROGEN 4 mg/dL (7-18); CALCIUM 9.4 MG/DL (8.5-10.1); CARBON DIOXIDE 26 MMOL/L (21-32); CHLORIDE 107 MMOL/L (98-107); CREATININE 0.8 MG/DL (0.55-1.30); POTASSIUM 3.9 MMOL/L (3.5-5.1); SODIUM 142 MMOL/L (136-145)
--- NOTE | 2018-06-11 07:44 | NUR ---
NURSE NOTES: Received pt from RUSH RAYMOND. Pt is confused and orient x2. pt is in RA. No SOB or acute respiratory distress noted. pt has intact iv access RAC 24g SL. Pt has sitter on bed side. all needs attended, bed is locked and is in the lowest position. call light within easy reach. will continue to monitor. Addendum: 06/11/18 at 0746 by Margarette Johnson RN Received pt from RUSH CEE.
[2018-06-11 08:11] VITALS: BP 139/73
[2018-06-11] MEDS: LORazepam 1mg tab ORAL SCH ×2 (08:41→17:52)
--- NOTE | 2018-06-11 10:39 | General Progress Note ---
Assessment/Plan Problem List: (1) Schizoaffective disorder, bipolar type ICD Codes: F25.0 - Schizoaffective disorder, bipolar type SNOMED: 07969622 Status: stable Assessment/Plan [id number] po bid lithium 900mg po qhs Ativan prn the pt lacks capacity to leave ama lithium level is pending Subjective Neurologic/Psychiatric: Reports: emotional problems Allergies: Coded Allergies: No Known Allergies (Unverified , 06/08/18) Subjective the pt has been calm and her behavior is controlled. the pt is re-directable and compliant with meds Objective Last 24 Hour Vital Signs Date Time Temp Pulse Resp B/P (MAP) Pulse Ox O2 Delivery O2 Flow Rate FiO2 06/11/18 09:00 Room Air 06/11/18 08:11 97.7 77 18 139/73 (95) 98 77 06/11/18 04:00 98.9 79 18 132/83 (99) 96 79 06/11/18 00:00 97.9 70 20 122/69 (86) 97 70 06/10/18 21:00 Room Air 06/10/18 20:00 98.1 73 20 108/77 (87) 96 73 06/10/18 16:00 97.9 70 19 130/77 (94) 93 70 06/10/18 12:00 98.1 77 20 139/87 (104) 97 Intake and Output 06/10/18 06/11/18 19:00 07:00 Intake Total 480 ml 120 ml Balance 480 ml 120 ml Intake Oral 480 ml 120 ml # Voids 4 2 # Bowel Movements 1 Laboratory Tests 06/11/18 05:30: White Blood Count 10.0, Red Blood Count 4.53, Hemoglobin 13.4, Hematocrit 41.2, Mean Corpuscular Volume 91, Mean Corpuscular Hemoglobin 29.7, Mean Corpuscular Hemoglobin Concent 32.6, Red Cell Distribution Width 11.1L, Platelet Count 231, Mean Platelet Volume 8.1, Neutrophils (%) (Auto) 68.6, Lymphocytes (%) (Auto) 19.2L, Monocytes (%) (Auto) 8.1, Eosinophils (%) (Auto) 3.1H, Basophils (%) ( Auto) 1.0, Sodium Level 142, Potassium Level 3.9, Chloride Level 107, Carbon Dioxide Level 26, Anion Gap 9, Blood Urea Nitrogen 4L, Creatinine 0.8, Estimat Glomerular Filtration Rate > 60, Glucose Level 133H, Calcium Level 9.4 Height (Feet): 5 Height (Inches): 4.00 Weight (Pounds): 140 General Appearance: WD/WN, no apparent distress, alert, confused Neurologic: depressed affect Bradford Randall MD Jun 11, 2018 10:39
[2018-06-11] MEDS ORDERED: LORazepam 1mg tab ORAL SCH (11:15)
--- NOTE | 2018-06-11 11:30 | GI Progress Note ---
Assessment/Plan Problems: (1) Electrolyte imbalance ICD Codes: E87.8 - Other disorders of electrolyte and fluid balance, not elsewhere classified SNOMED: 981962468 (2) Diarrhea ICD Codes: R19.7 - Diarrhea, unspecified SNOMED: 41471656 (3) Schizoaffective disorder, bipolar type ICD Codes: F25.0 - Schizoaffective disorder, bipolar type SNOMED: 93515661 (4) Dehydration ICD Codes: E86.0 - Dehydration SNOMED: 14609160 (5) Weakness ICD Codes: R53.1 - Weakness SNOMED: 74043389 Status: stable Status Narrative Discussed with Dr. Mendes Assessment/Plan Collect for C. difficile, unable to collect because diarrhea is resolved. Imodium prn Okay to advance diet Prophylactic antibiotics IV and p.o. hydration plus electrolyte correction PPI Zofran as needed Follow labs No plans for GI procedures given recent history of colonoscopy as stated per patient dc planning The patient was seen and examined at bedside and all new and available data was reviewed in the patients chart. I agree with the above findings, impression and plan. (Patient seen earlier today. Signature stamp does not reflect patient encounter time.). - Carlo Mendes MD Subjective Subjective Diarrhea resolved Tolerating diet Wants to be discharged Objective Last 24 Hour Vital Signs Date Time Temp Pulse Resp B/P (MAP) Pulse Ox O2 Delivery O2 Flow Rate FiO2 06/11/18 09:00 Room Air 06/11/18 08:11 97.7 77 18 139/73 (95) 98 77 06/11/18 04:00 98.9 79 18 132/83 (99) 96 79 06/11/18 00:00 97.9 70 20 122/69 (86) 97 70 06/10/18 21:00 Room Air 06/10/18 20:00 98.1 73 20 108/77 (87) 96 73 06/10/18 16:00 97.9 70 19 130/77 (94) 93 70 06/10/18 12:00 98.1 77 20 139/87 (104) 97 Intake and Output 06/10/18 06/11/18 19:00 07:00 Intake Total 480 ml 120 ml Balance 480 ml 120 ml Intake Oral 480 ml 120 ml # Voids 4 2 # Bowel Movements 1 Laboratory Tests Test 3/1/19 05:30 White Blood Count 10.0 K/UL (4.8-10.8) Red Blood Count 4.53 M/UL (4.20-5.40) Hemoglobin 13.4 G/DL (12.0-16.0) Hematocrit 41.2 % (37.0-47.0) Mean Corpuscular Volume 91 FL (80-99) Mean Corpuscular Hemoglobin 29.7 PG (27.0-31.0) Mean Corpuscular Hemoglobin Concent 32.6 G/DL (32.0-36.0) Red Cell Distribution Width 11.1 % (11.6-14.8) L Platelet Count 231 K/UL (150-450) Mean Platelet Volume 8.1 FL (6.5-10.1) Neutrophils (%) (Auto) 68.6 % (45.0-75.0) Lymphocytes (%) (Auto) 19.2 % (20.0-45.0) L Monocytes (%) (Auto) 8.1 % (1.0-10.0) Eosinophils (%) (Auto) 3.1 % (0.0-3.0) H Basophils (%) (Auto) 1.0 % (0.0-2.0) Sodium Level 142 MMOL/L (136-145) Potassium Level 3.9 MMOL/L (3.5-5.1) Chloride Level 107 MMOL/L (98-107) Carbon Dioxide Level 26 MMOL/L (21-32) Anion Gap 9 mmol/L (5-15) Blood Urea Nitrogen 4 mg/dL (7-18) L Creatinine 0.8 MG/DL (0.55-1.30) Estimat Glomerular Filtration Rate > 60 mL/min (>60) Glucose Level 133 MG/DL (74-106) H Calcium Level 9.4 MG/DL (8.5-10.1) [place] Level Pending Height (Feet): 5 Height (Inches): 4.00 Weight (Pounds): 140 General Appearance: WD/WN, no apparent distress, alert Cardiovascular: normal rate Respiratory/Chest: normal breath sounds, no respiratory distress Abdominal Exam: normal bowel sounds, non tender, soft Extremities: normal range of motion, non-tender Yousuf Rayo FRAMER Jun 11, 2018 11:30
[2018-06-11 12:07] VITALS: BP 133/97
--- NOTE | 2018-06-11 13:16 | Infectious Diseases Prog Note ---
Assessment/Plan Assessment/Plan A; 1. Diarrhea.resolved 2. Leukocytosis that is resolved. 3. Schizoaffective bipolar disorder. P: Discontinue Flagyl Subjective ROS Limited/Unobtainable: No Constitutional: Reports: no symptoms Respiratory: Reports: no symptoms Cardiovascular: Reports: no symptoms Gastrointestinal/Abdominal: Reports: other - lower abdominal pain, on & off Genitourinary: Reports: no symptoms Allergies: Coded Allergies: No Known Allergies (Unverified , 06/08/18) Objective Vital Signs Last 24 Hour Vital Signs Date Time Temp Pulse Resp B/P (MAP) Pulse Ox O2 Delivery O2 Flow Rate FiO2 06/11/18 12:07 97.9 100 21 133/97 (109) 99 100 06/11/18 09:00 Room Air 06/11/18 08:11 97.7 77 18 139/73 (95) 98 77 06/11/18 04:00 98.9 79 18 132/83 (99) 96 79 06/11/18 00:00 97.9 70 20 122/69 (86) 97 70 06/10/18 21:00 Room Air 06/10/18 20:00 98.1 73 20 108/77 (87) 96 73 06/10/18 16:00 97.9 70 19 130/77 (94) 93 70 Height (Feet): 5 Height (Inches): 4.00 Weight (Pounds): 140 General Appearance: no acute distress HEENT: mucous membranes moist Respiratory/Chest: lungs clear Cardiovascular: normal rate Abdomen: soft, non tender Extremities: no edema Neurologic/Psychiatric: alert, responsive Microbiology Date/Time Source Procedure Growth Status 06/08/18 13:30 Blood Blood Culture - Preliminary NO GROWTH AFTER 48 HOURS Resulted 06/08/18 13:20 Blood Blood Culture - Preliminary NO GROWTH AFTER 48 HOURS Resulted 06/08/18 19:40 Nasal Nares MRSA Culture - Final NO METHICILLIN RESISTANT STAPH AUREUS... Complete 06/08/18 19:40 Rectum VRE Culture - Final NO VANCOMYCIN RESISTANT ENTEROCOCCUS ... Resulted 06/08/18 19:40 Rectum Pending Resulted Laboratory Tests Test 06/11/18 05:30 White Blood Count 10.0 K/UL (4.8-10.8) Red Blood Count 4.53 M/UL (4.20-5.40) Hemoglobin 13.4 G/DL (12.0-16.0) Hematocrit 41.2 % (37.0-47.0) Mean Corpuscular Volume 91 FL (80-99) Mean Corpuscular Hemoglobin 29.7 PG (27.0-31.0) Mean Corpuscular Hemoglobin Concent 32.6 G/DL (32.0-36.0) Red Cell Distribution Width 11.1 % (11.6-14.8) L Platelet Count 231 K/UL (150-450) Mean Platelet Volume 8.1 FL (6.5-10.1) Neutrophils (%) (Auto) 68.6 % (45.0-75.0) Lymphocytes (%) (Auto) 19.2 % (20.0-45.0) L Monocytes (%) (Auto) 8.1 % (1.0-10.0) Eosinophils (%) (Auto) 3.1 % (0.0-3.0) H Basophils (%) (Auto) 1.0 % (0.0-2.0) Sodium Level 142 MMOL/L (136-145) Potassium Level 3.9 MMOL/L (3.5-5.1) Chloride Level 107 MMOL/L (98-107) Carbon Dioxide Level 26 MMOL/L (21-32) Anion Gap 9 mmol/L (5-15) Blood Urea Nitrogen 4 mg/dL (7-18) L Creatinine 0.8 MG/DL (0.55-1.30) Estimat Glomerular Filtration Rate > 60 mL/min (>60) Glucose Level 133 MG/DL (74-106) H Calcium Level 9.4 MG/DL (8.5-10.1) [place] Level Pending Current Medications Medications (Trade) Dose Ordered Sig/Marina Route PRN Reason Start Time Stop Time Status Last Admin Dose Admin Acetaminophen (Tylenol) 500 mg Q4H PRN ORAL Mild Pain/Temp > 100.5 06/08/18 20:00 07/08/18 19:59 [place] Carbonate ([place] Carbonate) 900 mg BEDTIME ORAL 06/09/18 21:00 07/09/18 20:59 06/10/18 22:00 Lorazepam (Ativan) 2 mg BID ORAL 06/11/18 18:00 06/18/18 17:59 Metronidazole (Flagyl) 500 mg Q8HR ORAL 06/10/18 14:00 06/17/18 13:59 06/11/18 13:11 Ondansetron HCl (Zofran ODT) 4 mg Q6H PRN ORAL Nausea & Vomiting 06/10/18 15:45 07/10/18 15:44 Risperidone (RisperDAL) 3 mg BID ORAL 06/11/18 18:00 07/11/18 17:59 Josh Shaffer MD Jun 11, 2018 13:16
[2018-06-11 16:00] VITALS: BP 117/64
--- NOTE | 2018-06-11 18:59 | NUR ---
CASE MANAGEMENT: REVIEW SI: DEHYDRATION . SCHIZOAFFECTIVE DISORDER, BIPOLAR TYPE T 97.7 HR 81 RR 20 BP 117/64 SAT 96% ROOM AIR LYMPH 19.2 BUN 4 CR 0.8 IS: ATIVAN PO BID RISPERIDONE PO BID FLAGYL PO Q8HR MED/SURG STATUS DCP: PATIENT IS FROM [facility]
--- NOTE | 2018-06-11 19:41 | NUR ---
NURSE NOTES: Pt received awake, sitting at the side of the bed and then stood up walking towards the door saying she was going outside. I helped her back to bed. Pt with no c/o pain or signs of distress at the moment. call light within reach, will continue to monitor.
--- NOTE | 2018-06-11 19:46 | NUR ---
HAND-OFF: Report given to RUSH STAPLETON.
[2018-06-11 20:00] VITALS: BP 150/91
--- NOTE | 2018-06-11 21:18 | General Progress Note ---
Assessment/Plan Problem List: (1) Dehydration ICD Codes: E86.0 - Dehydration SNOMED: 18531988 (2) Weakness ICD Codes: R53.1 - Weakness SNOMED: 01243908 (3) Schizoaffective disorder, bipolar type ICD Codes: F25.0 - Schizoaffective disorder, bipolar type SNOMED: 18418289 (4) Diarrhea ICD Codes: R19.7 - Diarrhea, unspecified SNOMED: 45051136 (5) Electrolyte imbalance ICD Codes: E87.8 - Other disorders of electrolyte and fluid balance, not elsewhere classified SNOMED: 621524404 Status: progressing Assessment/Plan diarrhea improving still weak psychosis reviewed chart and lab lyte abnormality push fluids Subjective ROS Limited/Unobtainable: Yes Allergies: Coded Allergies: No Known Allergies (Unverified , 06/08/18) Objective Last 24 Hour Vital Signs Date Time Temp Pulse Resp B/P (MAP) Pulse Ox O2 Delivery O2 Flow Rate FiO2 06/11/18 20:00 97.4 76 17 150/91 (110) 98 06/11/18 16:00 97.7 81 20 117/64 (81) 96 81 06/11/18 12:07 97.9 100 21 133/97 (109) 99 100 06/11/18 09:00 Room Air 06/11/18 08:11 97.7 77 18 139/73 (95) 98 77 06/11/18 04:00 98.9 79 18 132/83 (99) 96 79 06/11/18 00:00 97.9 70 20 122/69 (86) 97 70 Intake and Output 06/10/18 06/11/18 19:00 07:00 Intake Total 480 ml 120 ml Balance 480 ml 120 ml Intake Oral 480 ml 120 ml # Voids 4 2 # Bowel Movements 1 Laboratory Tests 06/11/18 05:30: White Blood Count 10.0, Red Blood Count 4.53, Hemoglobin 13.4, Hematocrit 41.2, Mean Corpuscular Volume 91, Mean Corpuscular Hemoglobin 29.7, Mean Corpuscular Hemoglobin Concent 32.6, Red Cell Distribution Width 11.1L, Platelet Count 231, Mean Platelet Volume 8.1, Neutrophils (%) (Auto) 68.6, Lymphocytes (%) (Auto) 19.2L, Monocytes (%) (Auto) 8.1, Eosinophils (%) (Auto) 3.1H, Basophils (%) ( Auto) 1.0, Sodium Level 142, Potassium Level 3.9, Chloride Level 107, Carbon Dioxide Level 26, Anion Gap 9, Blood Urea Nitrogen 4L, Creatinine 0.8, Estimat Glomerular Filtration Rate > 60, Glucose Level 133H, Calcium Level 9.4, [place] Level 0.96 Height (Feet): 5 Height (Inches): 4.00 Weight (Pounds): 140 Neck: supple Cardiovascular: normal rate Respiratory/Chest: lungs clear Abdomen: soft Casper Knowles MD Jun 11, 2018 21:18
[2018-06-12 00:05] VITALS: BP 119/76
[2018-06-12 04:00] VITALS: BP 136/85
--- NOTE | 2018-06-12 07:00 | General Progress Note ---
Assessment/Plan Problem List: (1) Diarrhea ICD Codes: R19.7 - Diarrhea, unspecified SNOMED: 23089605 (2) Schizoaffective disorder, bipolar type ICD Codes: F25.0 - Schizoaffective disorder, bipolar type SNOMED: 58912782 (3) Dehydration ICD Codes: E86.0 - Dehydration SNOMED: 86949041 (4) Electrolyte imbalance ICD Codes: E87.8 - Other disorders of electrolyte and fluid balance, not elsewhere classified SNOMED: 260068310 Assessment/Plan Collect for C. difficile, unable to collect because diarrhea is resolved. Imodium prn Prophylactic antibiotics>>>will dc IV and p.o. hydration plus electrolyte correction PPI Zofran as needed Follow labs No plans for GI procedures given recent history of colonoscopy as stated per patient dc planning Subjective ROS Limited/Unobtainable: Yes Allergies: Coded Allergies: No Known Allergies (Unverified , 06/08/18) Objective Last 24 Hour Vital Signs Date Time Temp Pulse Resp B/P (MAP) Pulse Ox O2 Delivery O2 Flow Rate FiO2 06/12/18 04:00 98.0 82 20 136/85 (102) 96 06/12/18 00:05 98.2 75 20 119/76 (90) 95 06/11/18 21:00 Room Air 06/11/18 20:00 97.4 76 17 150/91 (110) 98 06/11/18 16:00 97.7 81 20 117/64 (81) 96 81 06/11/18 12:07 97.9 100 21 133/97 (109) 99 100 06/11/18 09:00 Room Air 06/11/18 08:11 97.7 77 18 139/73 (95) 98 77 Intake and Output 06/11/18 06/12/18 18:59 06:59 Intake Total 720 ml 240 ml Balance 720 ml 240 ml Intake Oral 720 ml 240 ml # Voids 10 1 Height (Feet): 5 Height (Inches): 4.00 Weight (Pounds): 140 General Appearance: alert EENT: normal ENT inspection Neck: supple Cardiovascular: normal rate Respiratory/Chest: lungs clear Abdomen: normal bowel sounds, non tender, soft Extremities: non-tender Carlo Mendes MD Jun 12, 2018 07:00
--- NOTE | 2018-06-12 07:40 | NUR ---
NURSE NOTES: Received patient from [facility]. Patient is in bed, asleep but easily arousable to her name. Breathing is even and unlabored. IV intact, no s/s of infiltration. Bed is in lowest position and locked. Sitter @ bedside. Bed alarm is on and side rails up. Will continue plan of care.
[2018-06-12 08:05] VITALS: BP 132/67
[2018-06-12 08:06] LABS: BASOPHILS % (AUTO) 1.1 % (0.0-2.0); EOSINOPHILS % (AUTO) 3.9 % (0.0-3.0); HEMATOCRIT 42.4 % (37.0-47.0); HEMOGLOBIN 13.7 G/DL (12.0-16.0); LYMPHOCYTES % (AUTO) 22.2 % (20.0-45.0); MEAN CORPUSCULAR VOLUME 92 FL (80-99); MONOCYTES % (AUTO) 8.9 % (1.0-10.0); NEUTROPHILS % (AUTO) 63.8 % (45.0-75.0); PLATELET COUNT 240 K/UL (150-450); RED BLOOD COUNT 4.59 M/UL (4.20-5.40); RED CELL DISTRIBUTION WIDTH 11.3 % (11.6-14.8); WHITE BLOOD COUNT 8.7 K/UL (4.8-10.8)
[2018-06-12 08:08] LABS: ANION GAP 6 mmol/L (5-15); BLOOD UREA NITROGEN 6 mg/dL (7-18); CALCIUM 9.6 MG/DL (8.5-10.1); CARBON DIOXIDE 28 MMOL/L (21-32); CHLORIDE 107 MMOL/L (98-107); CREATININE 0.8 MG/DL (0.55-1.30); POTASSIUM 3.7 MMOL/L (3.5-5.1); SODIUM 141 MMOL/L (136-145)
--- NOTE | 2018-06-12 09:00 | NUR ---
NURSE NOTES: Patient is asleep @ this time. Will take her meds later.Will continue to monitor.
[2018-06-12] MEDS ORDERED: LORazepam Inj 2mg/ml 1ml IM SCH (11:30)
[2018-06-12] MEDS ORDERED: Haloperidol 5mg/ml Inj IM SCH (11:30)
[2018-06-12 11:31] VITALS: BP 134/66
[2018-06-12] MEDS: LORazepam 1mg tab ORAL SCH (11:51)
--- NOTE | 2018-06-12 12:30 | NUR ---
NURSE NOTES: Patient is asleep @ this time. Patient is calm and quiet and will be discharged.Patient just took her ativan and risperidine about a hour ago.Unable to administer haldol and ativan IM.
--- NOTE | 2018-06-12 14:23 | General Progress Note ---
Assessment/Plan Problem List: (1) Dehydration ICD Codes: E86.0 - Dehydration SNOMED: 00936338 (2) Weakness ICD Codes: R53.1 - Weakness SNOMED: 79400096 (3) Schizoaffective disorder, bipolar type ICD Codes: F25.0 - Schizoaffective disorder, bipolar type SNOMED: 28611489 (4) Diarrhea ICD Codes: R19.7 - Diarrhea, unspecified SNOMED: 63974405 (5) Electrolyte imbalance ICD Codes: E87.8 - Other disorders of electrolyte and fluid balance, not elsewhere classified SNOMED: 786082839 Assessment/Plan diarrhea improved dc today see dc summary for details Subjective ROS Limited/Unobtainable: Yes Allergies: Coded Allergies: No Known Allergies (Unverified , 06/08/18) Objective Last 24 Hour Vital Signs Date Time Temp Pulse Resp B/P (MAP) Pulse Ox O2 Delivery O2 Flow Rate FiO2 06/12/18 11:31 97.8 70 20 134/66 (88) 99 06/12/18 09:00 Room Air 06/12/18 08:05 98.0 62 20 132/67 (88) 96 06/12/18 04:00 98.0 82 20 136/85 (102) 96 06/12/18 00:05 98.2 75 20 119/76 (90) 95 06/11/18 21:00 Room Air 06/11/18 20:00 97.4 76 17 150/91 (110) 98 06/11/18 16:00 97.7 81 20 117/64 (81) 96 81 Intake and Output 06/11/18 06/12/18 19:00 07:00 Intake Total 720 ml 240 ml Balance 720 ml 240 ml Intake Oral 720 ml 240 ml # Voids 10 1 Laboratory Tests 06/12/18 06:10: White Blood Count 8.7, Red Blood Count 4.59, Hemoglobin 13.7, Hematocrit 42.4, Mean Corpuscular Volume 92, Mean Corpuscular Hemoglobin 29.9, Mean Corpuscular Hemoglobin Concent 32.4, Red Cell Distribution Width 11.3L, Platelet Count 240, Mean Platelet Volume 8.7, Neutrophils (%) (Auto) 63.8, Lymphocytes (%) (Auto) 22.2, Monocytes (%) (Auto) 8.9, Eosinophils (%) (Auto) 3.9H, Basophils (%) (Auto ) 1.1, Sodium Level 141, Potassium Level 3.7, Chloride Level 107, Carbon Dioxide Level 28, Anion Gap 6, Blood Urea Nitrogen 6L, Creatinine 0.8, Estimat Glomerular Filtration Rate > 60, Glucose Level 88, Calcium Level 9.6 Height (Feet): 5 Height (Inches): 4.00 Weight (Pounds): 140 Cardiovascular: regular rhythm Respiratory/Chest: lungs clear Casper Knowles MD Jun 12, 2018 14:23
[2018-06-12 16:00] VITALS: BP 142/68
--- NOTE | 2018-06-12 16:20 | NUR ---
NURSE NOTES: Patient discharged to assisted living [facility] accompanied by two ambulance personnel via [facility]. Prior to discharge, patient's condition was stable. Patient was calm and quiet and followed direction without agitation or restlessness. Denied diarrhea or nausea or vomiting. RN spoke to Cyndi @ [facility] and confirmed that patient is the resident over there and she will be accepted. RN spoke to patient's sister Patricia and informed discharge. discharge instruction given to assisted living staff Cyndi. All belongings accounted for including her necklace, watch, bracelet and clothes and shoes. All belongings worn by the patient. Skin intact, IV and ID was removed. No s/s of infection or bleeding on IV removal site.
--- NOTE | 2018-06-12 20:11 | General Progress Note ---
Assessment/Plan Problem List: (1) Schizoaffective disorder, bipolar type ICD Codes: F25.0 - Schizoaffective disorder, bipolar type SNOMED: 21782709 Assessment/Plan [id number] po bid lithium 900mg po qhs Ativan prn the pt lacks capacity to leave ama lithium level is pending Subjective Neurologic/Psychiatric: Reports: anxiety, depressed Allergies: Coded Allergies: No Known Allergies (Unverified , 06/08/18) Subjective the pt has been calm and her behavior is controlled. the pt is re-directable and compliant with meds Objective Last 24 Hour Vital Signs Date Time Temp Pulse Resp B/P (MAP) Pulse Ox O2 Delivery O2 Flow Rate FiO2 06/12/18 16:00 98.0 74 20 142/68 (92) 99 06/12/18 11:31 97.8 70 20 134/66 (88) 99 06/12/18 09:00 Room Air 06/12/18 08:05 98.0 62 20 132/67 (88) 96 06/12/18 04:00 98.0 82 20 136/85 (102) 96 06/12/18 00:05 98.2 75 20 119/76 (90) 95 06/11/18 21:00 Room Air Intake and Output 06/11/18 06/12/18 19:00 07:00 Intake Total 720 ml 240 ml Balance 720 ml 240 ml Intake Oral 720 ml 240 ml # Voids 10 1 Laboratory Tests 06/12/18 06:10: White Blood Count 8.7, Red Blood Count 4.59, Hemoglobin 13.7, Hematocrit 42.4, Mean Corpuscular Volume 92, Mean Corpuscular Hemoglobin 29.9, Mean Corpuscular Hemoglobin Concent 32.4, Red Cell Distribution Width 11.3L, Platelet Count 240, Mean Platelet Volume 8.7, Neutrophils (%) (Auto) 63.8, Lymphocytes (%) (Auto) 22.2, Monocytes (%) (Auto) 8.9, Eosinophils (%) (Auto) 3.9H, Basophils (%) (Auto ) 1.1, Sodium Level 141, Potassium Level 3.7, Chloride Level 107, Carbon Dioxide Level 28, Anion Gap 6, Blood Urea Nitrogen 6L, Creatinine 0.8, Estimat Glomerular Filtration Rate > 60, Glucose Level 88, Calcium Level 9.6 Height (Feet): 5 Height (Inches): 4.00 Weight (Pounds): 140 Bradford Randall MD Jun 12, 2018 20:11
--- NOTE | 2018-06-15 12:55 | Discharge Summary ---
Discharge Summary Discharge Summary _ DATE OF ADMISSION: 06/08/2018 DATE OF DISCHARGE: 06/12/2018 DISCHARGED BY: Dr Knowles REASON FOR ADMISSION: 62 years old female with past medical history of dementia, bipolar disorder, presented with diarrhea , nausea and decreased oral intake. No vomiting. No chest pain no shortness of breath. Patient reported getting progressively more weak over the past few days. No dysuria, no urinary frequency. Upon evaluation vital signs were stable. Laboratory workup revealed mild leukocytosis, stable hemoglobin and, hematocrit stable electrolytes and renal parameters. Lactic acid 0.8. Stable LFT. Troponin negative. EKG revealed normal sinus rhythm, no acute ischemic changes. Lipase 51. Urinalysis revealed evidence of ketones, but no evidence of UTI. Chest x-ray revealed no acute cardiopulmonary pathology. Patient admitted for further management of diarrhea and dehydration.. CONSULTANTS: ID specialist Dr. Pierre GI specialist Dr. Mendes psychiatrist [facility] COURSE: Patient admitted to medical surgical floor and started on the IV hydration. Patient was started on empiric Flagyl due to diarrhea and leukocytosis. Patient Initially was kept on liquid diet. GI and ID consults were requested. Stool for C. difficile was ordered, however unable to collect since diarrhea resolved on its own. Imodium was on board as needed. Diet was slowly advanced as tolerated. Oral fluids were pushed. Patient started on proton pump inhibitor. Symptomatic treatment with antiemetic provided as needed. Patient had a recent history of colonoscopy as stated by patient. Hemoglobin and hematocrit remained stable. No plans for GI procedure, as per GI specialist. ID specialist closely follow. Leukocytosis and diarrhea resolved. Flagyl was discontinued. Psychiatrist followed and diagnosed patient with schizoaffective disorder bipolar type. Psychiatric medication regimen was optimized. [place] level was checked and was stable. Renal parameters and electrolytes were closely monitored. Electrolytes corrected as needed and nephrotoxins were avoided. Patient apparently had non-witnessed fall at the alf facility . Patient had a right shoulder and right forearm x-ray due to pain , which revealed no acute process. Patient clinically stabilized and was ready for discharge to alf facility for continuation of care. FINAL DIAGNOSES: Diarrhea-resolved Dehydration Schizoaffective disorder bipolar type Leukocytosis-resolved Weakness- probably due to dehydration - improved DISCHARGE MEDICATIONS: See Medication Reconciliation list. DISCHARGE INSTRUCTIONS: Patient was discharged to the alf facility. Follow up with medical doctor at the facility. I have been assigned to dictate discharge summary for this account. I was not involved in the patient's management. Madiha Galarza NP Jun 15, 2018 12:55
== END 2018-06-12 16:20 | DRG 422 ==
LOC: EDBD 12:41 → EMR 13:55 → 4E 14:07 → EDBEDREQ 14:19 → 4E 06-09 15:31
DX: E86.0 Dehydration (principal); F25.0 Schizoaffective disorder, bipolar type; E87.8 Other disorders of electrolyte and fluid balance, not elsewhere classified; R19.7 Diarrhea, unspecified; R53.1 Weakness; M25.511 Pain in right shoulder; M79.631 Pain in right forearm; Z91.81 History of falling
CPT/HCPCS: 36415; 71045; 80048; 80053; 80178; 81003; 82550; 82553; 83605; 83690; 84484; 85025; 87040; 87081; 93005; 96360; 96372; 99285

== ENCOUNTER 2018-06-30 08:44 | Inpatient (IN) | payer MEDICAID ==
[~2018-06-30] VITALS: Ht 157.5 cm; Wt 75.7 kg
[~2018-06-30 08:44] MED LIST: BENZTROPINE ME0.5 MG PO; CHANTIX0.5 MG PO; LITHIUM CARBON300 MG ORAL; LORAZEPAM1 MG ORAL; NICODERM 7MG/24H1 EA TD; RISPERDAL2 MG ORAL
--- NOTE | 2018-06-30 08:47 | NUR ---
ED Nurse Note: Pt. was brought in by ambulance due to reports of increase agtation. Per EMS, pt. started recently on Protection, benztropine and risperidone and that could possibly contribute to the increased agitation
[2018-06-30 09:34] LABS: BASOPHILS % (AUTO) 1.8 % (0.0-2.0); EOSINOPHILS % (AUTO) 1.5 % (0.0-3.0); HEMATOCRIT 46.3 % (37.0-47.0); HEMOGLOBIN 14.9 G/DL (12.0-16.0); LYMPHOCYTES % (AUTO) 15.3 % (20.0-45.0); MEAN CORPUSCULAR VOLUME 92 FL (80-99); MONOCYTES % (AUTO) 5.8 % (1.0-10.0); NEUTROPHILS % (AUTO) 75.5 % (45.0-75.0); PLATELET COUNT 243 K/UL (150-450); RED BLOOD COUNT 5.06 M/UL (4.20-5.40); RED CELL DISTRIBUTION WIDTH 11.2 % (11.6-14.8)
[2018-06-30 09:38] LABS: APPEARANCE,URINE CLEAR; BILIRUBIN, URINE NEGATIVE (NEGATIVE); COLOR,URINE PALE YELLOW; GLUCOSE, URINE (UA) NEGATIVE (NEGATIVE); KETONES,URINE 2+ (NEGATIVE); LEUKOCYTE ESTERASE ,URINE NEGATIVE (NEGATIVE); NITRITE,URINE NEGATIVE (NEGATIVE); PH,URINE 7 (4.5-8.0); PROTEIN,URINE NEGATIVE (NEGATIVE); UROBILINOGEN,URINE NORMAL MG/DL (0.0-1.0)
[2018-06-30 09:52] VITALS: BP 157/97
[2018-06-30 09:52] LABS: ANION GAP 12 mmol/L (5-15); BLOOD UREA NITROGEN 8 mg/dL (7-18); CALCIUM 9.7 MG/DL (8.5-10.1); CARBON DIOXIDE 24 MMOL/L (21-32); CHLORIDE 107 MMOL/L (98-107); CREATININE 0.6 MG/DL (0.55-1.30); POTASSIUM 4.2 MMOL/L (3.5-5.1); SODIUM 143 MMOL/L (136-145)
--- NOTE | 2018-06-30 09:54 | NUR ---
ED Nurse Note: Pt. has episodes of standing up and getting off the bed. turned off the lights to decrease the stimulation.
[2018-06-30 09:57] LABS: ALANINE AMINOTRANSFERASE 14 U/L (12-78); ALBUMIN 3.7 G/DL (3.4-5.0); ALKALINE PHOSPHATASE 88 U/L (46-116); ASPARTATE AMINO TRANSFERASE 17 U/L (15-37); BILIRUBIN,TOTAL 0.5 MG/DL (0.2-1.0)
[2018-06-30] MEDS ORDERED: LORazepam Inj 2mg/ml 1ml ONE (09:59)
[2018-06-30] MEDS ORDERED: LORazepam Inj 2mg/ml 1ml IV ONE ×3 (10:00→11:15)
--- NOTE | 2018-06-30 10:17 | NUR ---
ED Nurse Note: PT. KEEPS SAYING " I WANT A CIGARETTE"
[2018-06-30 11:37] VITALS: BP 120/74
--- NOTE | 2018-06-30 13:43 | Emergency Room Report ---
History of Present Illness General Chief Complaint: General Complaint Source: Patient, EMS Present Illness HPI Patient presents emergency department today with acute altered mental status. Patient apparently has a history of psychiatric disorder. Patient also has history of dementia. Patient according to the paramedics was placed at the assisted living not long ago and has become more agitated and not eating wandering the halls and very difficult to control. They do not feel that he can care for her at the assisted living because of patient's bizarre behavior and difficulty with and aggressive behavior patient was sent her for further evaluation. Patient is not cooperative appears at times there. Symptoms noted to be moderate to severe. No other modifying factors. No other associated signs and symptoms. No other complaints were noted. Allergies: Coded Allergies: No Known Allergies (Unverified , 06/08/18) Patient History Past Medical History: dementia, other - Bipolar Past Surgical History: none Pertinent Family History: none Social History: Denies: smoking, alcohol use, drug use Social History Narrative sstays at assisted-living Reviewed Nursing Documentation: PMH: Agreed; PSxH: Agreed Nursing Documentation-PMH Hx Cardiac Problems: No Hx Cancer: No Hx Gastrointestinal Problems: No History Of Psychiatric Problem: Yes - bipolar disrorder, Hx Neurological Problems: Yes - dementia Hx Dementia: Yes Review of Systems All Other Systems: negative except mentioned in HPI Physical Exam Vital Signs Date Time Temp Pulse Resp B/P (MAP) Pulse Ox O2 Delivery O2 Flow Rate FiO2 06/30/18 08:37 98.1 83 16 150/88 98 Nasal Cannula 2.0 Sp02 EP Interpretation: reviewed, normal General Appearance: normal inspection, well appearing, no apparent distress, alert Head: atraumatic Eyes: bilateral eye normal inspection ENT: normal ENT inspection, hearing grossly normal, normal voice Neck: normal inspection, full range of motion, supple, no bony tend Respiratory: normal inspection, lungs clear, normal breath sounds, no respiratory distress, no retraction, no wheezing Cardiovascular #1: regular rate, rhythm, no edema Gastrointestinal: normal inspection, normal bowel sounds, non tender, soft, no guarding, no hernia Genitourinary: no CVA tenderness Musculoskeletal: normal inspection, back normal, normal range of motion Neurologic: normal inspection, alert, responsive, speech normal Psychiatric: normal inspection, judgement/insight normal, mood/affect normal Skin: normal inspection, normal color, no rash Medical Decision Making Diagnostic Impression: Primary Impression: Acute alteration in mental status Additional Impression: Schizophrenia ER Course Patient presents emergency department today with acute altered mental status failure to thrive abnormal behavior. Differential considerations include acute left lamina now T acute infectious process severe dementia worsening of underlying schizophrenia just name a few.Given the severity of the patient's presentation I felt this is a highly complex patient. This patient required extensive workup. Patient workup was negative. Patient however was very agitated requiring sedation and restraint. Therefore patient will be admitted to hospital. Case was discussed with Dr. James George patient will be placed on observation status. Labs Test 06/30/18 09:05 White Blood Count 10.0 K/UL (4.8-10.8) Red Blood Count 5.06 M/UL (4.20-5.40) Hemoglobin 14.9 G/DL (12.0-16.0) Hematocrit 46.3 % (37.0-47.0) Mean Corpuscular Volume 92 FL (80-99) Mean Corpuscular Hemoglobin 29.4 PG (27.0-31.0) Mean Corpuscular Hemoglobin Concent 32.1 G/DL (32.0-36.0) Red Cell Distribution Width 11.2 % (11.6-14.8) Platelet Count 243 K/UL (150-450) Mean Platelet Volume 6.6 FL (6.5-10.1) Neutrophils (%) (Auto) 75.5 % (45.0-75.0) Lymphocytes (%) (Auto) 15.3 % (20.0-45.0) Monocytes (%) (Auto) 5.8 % (1.0-10.0) Eosinophils (%) (Auto) 1.5 % (0.0-3.0) Basophils (%) (Auto) 1.8 % (0.0-2.0) Urine Color Pale yellow Urine Appearance Clear Urine pH 7 (4.5-8.0) Urine Specific [place] 1.005 (1.005-1.035) Urine Protein Negative (NEGATIVE) Urine Glucose (UA) Negative (NEGATIVE) Urine Ketones 2+ (NEGATIVE) Urine Blood Negative (NEGATIVE) Urine Nitrite Negative (NEGATIVE) Urine Bilirubin Negative (NEGATIVE) Urine Urobilinogen Normal MG/DL (0.0-1.0) Urine Leukocyte Esterase Negative (NEGATIVE) Sodium Level 143 MMOL/L (136-145) Potassium Level 4.2 MMOL/L (3.5-5.1) Chloride Level 107 MMOL/L (98-107) Carbon Dioxide Level 24 MMOL/L (21-32) Anion Gap 12 mmol/L (5-15) Blood Urea Nitrogen 8 mg/dL (7-18) Creatinine 0.6 MG/DL (0.55-1.30) Estimat Glomerular Filtration Rate > 60 mL/min (>60) Glucose Level 94 MG/DL (74-106) Calcium Level 9.7 MG/DL (8.5-10.1) Total Bilirubin 0.5 MG/DL (0.2-1.0) Aspartate Amino Transf (AST/SGOT) 17 U/L (15-37) Alanine Aminotransferase (ALT/SGPT) 14 U/L (12-78) Alkaline Phosphatase 88 U/L (46-116) Troponin I 0.000 ng/mL (0.000-0.056) Total Protein 7.5 G/DL (6.4-8.2) Albumin 3.7 G/DL (3.4-5.0) Globulin 3.8 g/dL Albumin/Globulin Ratio 1.0 (1.0-2.7) Lipase 47 U/L (73-393) Last Vital Signs Date Time Temp Pulse Resp B/P (MAP) Pulse Ox O2 Delivery O2 Flow Rate FiO2 06/30/18 11:37 98.6 72 16 120/74 98 Room Air 06/30/18 08:37 2.0 Status: improved Disposition: ADMITTED INPATIENT Condition: Serious Referrals: NON PHYSICIAN (PCP) Jose R Estevez MD Jun 30, 2018 13:43
[2018-06-30 13:44] VITALS: BP 128/86
--- NOTE | 2018-06-30 14:26 | NUR ---
ED Nurse Note: TELEPHONE REPORT GIVEN TO RUSH JORDAN
--- NOTE | 2018-06-30 14:35 | NUR ---
NURSE NOTES: Received patient from ER via gurney. Patient is alert and oriented x2 confused. Denies any pain or discomfort. Patient is restlessness, agitated. Offered fluid. Patient is ambulatory but unsteady with h/o fall within 3 months. Patient tried to pull out the IV and tried to walk by herself without assist. Reminded patient to use call light if needed and RN demonstrated how to use call light and return demo done. but patient forgot and got up from bed. Bed alarm is on and bed is in lowest position and locked. Call light within reach. Rn @ bedside. Dr. Silvestre paged for admission order. Patient is on observation status.Skin assessment done. Skin intact, all belongings check by RN and patient. Iv intact, no s/s of infiltration. Will continue plan of care.
[2018-06-30 16:00] VITALS: BP 107/87
[2018-06-30] MEDS ORDERED: LORazepam 1mg tab ORAL PRN (16:15)
--- NOTE | 2018-06-30 16:15 | NUR ---
NURSE NOTES: RN received order from Dr. Silvestre. Order read back and carried out. RN recommended sitter or restraints since patient is ambulatory, unsteady, risks of fall, restlessness and tried to leave the facility and came in with altered mental status. Dr. Silvestre denied and received physician consult with Dr. Randall. Patient is restlessness, tried to walk without assist. Rn @ bedside. Bed is in lowest position and locked. Bed alarm is on and side rails up. Will continue to monitor.
--- NOTE | 2018-06-30 18:00 | NUR ---
NURSE NOTES: Patient ate 100% of breakfast and calm @ this time.
--- NOTE | 2018-06-30 19:16 | NUR ---
HAND-OFF: Report given to Hayden.
[2018-06-30 20:00] VITALS: BP 124/80
--- NOTE | 2018-06-30 20:00 | NUR ---
NURSE NOTES: Patient received in bed, very forgetful, very restless, attempts to get out of bed multiple times, wanting to go home, reoriented patient but patient was very forgetful. Dr. Randall in the unit. Patient seen by Dr. Randall, received order for B soft wrist restraints for safety, impulsiveness, and high fall risk. Patient educated regarding soft wrist restraints, verbalized understanding at this time, will reinforce throughout the shift. Patient assisted to walk to the bathroom prior restraints applied. Restraints applied as ordered when patient assisted back to bed, charge nurse made aware. Safe environment enforced. Will continue with close monitoring. Call light in reach.
[2018-06-30] MEDS: Heparin 5000 units/ml inj SUBQ SCH (20:22)
--- NOTE | 2018-06-30 23:33 | Consultation ---
History of Present Illness General Chief Complaint: General Complaint Present Illness HPI 62 yo female presents emergency department today with altered mental status. the pt has history of dementia and schizophrenia. the pt is delusional and disorganized. the pt was at [employer] last month. the pt is very agitated and pacing. the pt is having cognitive impairment. and is unable to provide any hx. Allergies: Coded Allergies: No Known Allergies (Unverified , 06/08/18) Medication History Scheduled Benztropine Mesylate* (Cogentin*), 0.5 MG PO BID, (Reported) Talent Carbonate* (Talent*), 300 MG ORAL DAILY, (Reported) Talent Carbonate* (Talent*), 600 MG ORAL BEDTIME, (Reported) Lorazepam* (Lorazepam*), 1 MG ORAL BID, (Reported) Nicotine (Nicotine Patch), 7 MG TD DAILY, (Reported) Risperidone* (Risperdal*), 2 MG ORAL BID, (Reported) Varenicline Tartrate (Chantix), 0.5 MG PO BID, (Reported) Patient History Limited by: medical condition History Provided By: Medical Record, PMD Healthcare decision maker N Resuscitation status Full Code Advanced Directive on File No Past Medical/Surgical History Past Medical/Surgical History: (1) Electrolyte imbalance (2) Schizophrenia (3) Acute alteration in mental status (4) Altered mental status (5) Schizoaffective disorder, bipolar type Review of Systems Psychiatric: Reports: prior hx, anxiety, depressed feelings, emotional problems Physical Exam General Appearance: alert, confused, moderate distress, agitated Last 24 Hour Vital Signs Date Time Temp Pulse Resp B/P (MAP) Pulse Ox O2 Delivery O2 Flow Rate FiO2 06/30/18 20:00 97.8 87 16 124/80 (95) 96 06/30/18 16:00 98.3 89 19 107/87 (94) 96 06/30/18 15:07 Room Air 06/30/18 14:32 98.4 65 128/86 100 Room Air 06/30/18 13:44 98.4 65 128/86 100 Room Air 06/30/18 11:37 98.6 72 16 120/74 98 Room Air 06/30/18 09:52 98.1 70 20 157/97 98 Room Air 06/30/18 09:52 70 20 Room Air 06/30/18 08:37 98.1 83 16 150/88 98 Nasal Cannula 2.0 Laboratory Tests Test 06/30/18 09:05 White Blood Count 10.0 K/UL (4.8-10.8) Red Blood Count 5.06 M/UL (4.20-5.40) Hemoglobin 14.9 G/DL (12.0-16.0) Hematocrit 46.3 % (37.0-47.0) Mean Corpuscular Volume 92 FL (80-99) Mean Corpuscular Hemoglobin 29.4 PG (27.0-31.0) Mean Corpuscular Hemoglobin Concent 32.1 G/DL (32.0-36.0) Red Cell Distribution Width 11.2 % (11.6-14.8) L Platelet Count 243 K/UL (150-450) Mean Platelet Volume 6.6 FL (6.5-10.1) Neutrophils (%) (Auto) 75.5 % (45.0-75.0) H Lymphocytes (%) (Auto) 15.3 % (20.0-45.0) L Monocytes (%) (Auto) 5.8 % (1.0-10.0) Eosinophils (%) (Auto) 1.5 % (0.0-3.0) Basophils (%) (Auto) 1.8 % (0.0-2.0) Urine Color Pale yellow Urine Appearance Clear Urine pH 7 (4.5-8.0) Urine Specific [place] 1.005 (1.005-1.035) Urine Protein Negative (NEGATIVE) Urine Glucose (UA) Negative (NEGATIVE) Urine Ketones 2+ (NEGATIVE) H Urine Blood Negative (NEGATIVE) Urine Nitrite Negative (NEGATIVE) Urine Bilirubin Negative (NEGATIVE) Urine Urobilinogen Normal MG/DL (0.0-1.0) Urine Leukocyte Esterase Negative (NEGATIVE) Sodium Level 143 MMOL/L (136-145) Potassium Level 4.2 MMOL/L (3.5-5.1) Chloride Level 107 MMOL/L (98-107) Carbon Dioxide Level 24 MMOL/L (21-32) Anion Gap 12 mmol/L (5-15) Blood Urea Nitrogen 8 mg/dL (7-18) Creatinine 0.6 MG/DL (0.55-1.30) Estimat Glomerular Filtration Rate > 60 mL/min (>60) Glucose Level 94 MG/DL (74-106) Calcium Level 9.7 MG/DL (8.5-10.1) Total Bilirubin 0.5 MG/DL (0.2-1.0) Aspartate Amino Transf (AST/SGOT) 17 U/L (15-37) Alanine Aminotransferase (ALT/SGPT) 14 U/L (12-78) Alkaline Phosphatase 88 U/L (46-116) Troponin I 0.000 ng/mL (0.000-0.056) Total Protein 7.5 G/DL (6.4-8.2) Albumin 3.7 G/DL (3.4-5.0) Globulin 3.8 g/dL Albumin/Globulin Ratio 1.0 (1.0-2.7) Lipase 47 U/L (73-393) L Microbiology Date/Time Source Procedure Growth Status 06/30/18 09:30 Rectum Received Height (Feet): 5 Height (Inches): 2.00 Weight (Pounds): 167 Medications Current Medications Medications (Trade) Dose Ordered Sig/Marina Route PRN Reason Start Time Stop Time Status Last Admin Dose Admin Heparin Sodium (Porcine) (Heparin 5000 units/ml) 5,000 units EVERY 12 HOURS SUBQ 06/30/18 21:00 07/30/18 20:59 06/30/18 20:22 Talent Carbonate (Talent Carbonate) 300 mg DAILY ORAL 07/01/18 09:00 07/31/18 08:59 Talent Carbonate (Talent Carbonate) 600 mg BEDTIME ORAL 06/30/18 21:00 07/30/18 20:59 06/30/18 20:21 Lorazepam (Ativan) 1 mg BIDPRN PRN ORAL For Anxiety 06/30/18 16:15 07/07/18 16:14 Nicotine (Nicoderm) 1 patch DAILY TDERMAL 07/01/18 09:00 07/31/18 08:59 Risperidone (RisperDAL) 2 mg BID ORAL 06/30/18 18:00 07/30/18 17:59 06/30/18 17:31 Assessment/Plan Problem List: (1) Schizoaffective disorder, bipolar type ICD Codes: F25.0 - Schizoaffective disorder, bipolar type SNOMED: 47813762 Assessment/Plan lithium riperdal klonopin ativan prn provided emily/Bradford Williamson MD Jun 30, 2018 23:33
[2018-07-01] VITALS: BP 116/65
[2018-07-01 04:00] VITALS: BP 107/61
--- NOTE | 2018-07-01 07:30 | NUR ---
NURSE NOTES: Received pt from RUSH FONTENOT. Pt is confused and orient x2. pt is in RA. No SOB or acute respiratory distress noted. pt has intact iv access RH 22G SL. all needs attended, bed is locked and is in the lowest position. call light within easy reach. will continue to monitor.
--- NOTE | 2018-07-01 07:35 | NUR ---
HAND-OFF: Report given to Margarette BEVERLY.
[2018-07-01 08:00] VITALS: BP 146/86
[2018-07-01] MEDS: Heparin 5000 units/ml inj SUBQ SCH ×2 (08:54→21:16)
--- NOTE | 2018-07-01 09:18 | NUR ---
TANK [employer] PROCESS CHEESE 62 Y/O FEMALE BIBA FROM [facility] TO [facility] CC:GENERAL COMPLAINT SI:ALTERED MENTAL STATUS VS: BP 157/97, P 83, T 98.6, RR 16, SpO2 98 on 2.0L NC Urine Ketones 2+ IS:LORAZEPAM 1mg IV RISPERIDONE 2mg LITHIUM 600mg ADMITTED TO MED/SURG DC PLAN RETURN TOO [facility]
--- NOTE | 2018-07-01 09:58 | NUR ---
*-* INSURANCE *-* CLINICALS AND REVIEW HAVE BEEN FAXED TO: [facility] F: [phone].
--- NOTE | 2018-07-01 10:31 | NUR ---
Social Service Note Patient is not homeless. Patient is a resident of [facility], confirmed by Zoe at facility.
[2018-07-01 12:00] VITALS: BP 129/77
[2018-07-01 16:00] VITALS: BP 139/86
--- NOTE | 2018-07-01 16:33 | General Progress Note ---
Assessment/Plan Problem List: (1) Schizoaffective disorder, bipolar type ICD Codes: F25.0 - Schizoaffective disorder, bipolar type SNOMED: 86519598 Assessment/Plan lithium riperdal klonopin ativan prn provided ro/st dc restraints Subjective Neurologic/Psychiatric: Reports: anxiety, depressed, emotional problems Allergies: Coded Allergies: No Known Allergies (Unverified , 06/08/18) Objective Last 24 Hour Vital Signs Date Time Temp Pulse Resp B/P (MAP) Pulse Ox O2 Delivery O2 Flow Rate FiO2 07/01/18 12:00 97.5 62 18 129/77 (94) 95 07/01/18 09:00 Room Air 07/01/18 08:00 97.8 94 18 146/86 (106) 96 07/01/18 04:00 97.9 60 18 107/61 (76) 95 07/01/18 00:00 97.2 66 16 116/65 (82) 96 06/30/18 21:00 Room Air 06/30/18 20:00 97.8 87 16 124/80 (95) 96 Intake and Output 06/30/18 07/01/18 18:59 06:59 Intake Total 300 ml 200 ml Output Total 0 ml Balance 300 ml 200 ml Intake Oral 300 ml 200 ml Output Urine Total 0 ml # Voids 2 2 Height (Feet): 5 Height (Inches): 2.00 Weight (Pounds): 167 General Appearance: alert, confused, agitated Bradford Randall MD Jul 01, 2018 16:33
[2018-07-01] MEDS ORDERED: LORazepam 1mg tab ORAL PRN (16:45)
--- NOTE | 2018-07-01 19:30 | NUR ---
HAND-OFF: Report given to RUSH ANNE.
[2018-07-01 20:00] VITALS: BP 135/70
--- NOTE | 2018-07-01 20:08 | NUR ---
NURSE NOTES: Received patient in no apparent distress. A&OX2, forgetful. IV site patent and intact. Bed in lowest position. Call light within reach. Will continue to monitor.
[2018-07-02] VITALS: BP 119/68
[2018-07-02 04:00] VITALS: BP 142/80
--- NOTE | 2018-07-02 04:36 | History and Physical Report ---
DATE OF ADMISSION: 06/30/2018 HISTORY OF PRESENT ILLNESS: This is a 62-year-old female with history of schizophrenia and dementia. She was transferred from a facility as it was felt that she was difficult to control. This was a board and care facility. The facility felt that she could not be handled and transferred her here to the [facility]. Here, she is admitted and has been seen by Dr. Randall and medications will be adjusted. PAST PSYCHIATRIC HISTORY: Schizophrenia and dementia. ALLERGIES: None. SURGERIES: None. HOME MEDICATIONS: Reviewed and reconciled in the chart. REVIEW OF SYSTEMS: Unreliable. PHYSICAL EXAMINATION: GENERAL: Revealed an elderly female. VITAL SIGNS: Blood pressure is 120/70, heart rate is 54, respirations 18, and O2 saturation 100% on room air. HEENT: Unremarkable. LUNGS: Clear breath sounds bilaterally with normal heart sounds. ABDOMEN: Soft. EXTREMITIES: There is no edema. NEUROLOGIC: Nonfocal. The patient is awake and confused. LABORATORY AND DIAGNOSTIC DATA: Normal CBC and BMP. Troponin is negative. Imaging studies, none obtained. IMPRESSION: 1. Schizophrenia. 2. Dementia. DISCUSSION: At this time, the patient is stable. Her medications have been resumed and she is cooperating at this point in time. At this time, I am comfortable discharging her back to facility assuming that it to accommodate her outpatient followup. James Silvestre M.D. DR: MARCI JOB#: [id number] CC:
--- NOTE | 2018-07-02 07:29 | NUR ---
HAND-OFF: Report given to Margarette BEVERLY.
--- NOTE | 2018-07-02 07:30 | NUR ---
NURSE NOTES: Received pt from RUSH ANNE. Pt is confused and orient x2. Pt is in RA. No SOB or acute respiratory distress noted. pt has intact iv access RFA SL. All needs attended, bed is locked and is in the lowest position. call light within easy reach. will continue to monitor.
[2018-07-02 08:00] VITALS: BP 147/101
[2018-07-02] MEDS: Heparin 5000 units/ml inj SUBQ SCH ×2 (08:42→20:59)
--- NOTE | 2018-07-02 11:29 | NUR ---
DRAINAGE INSPECTORMANAGER CULINARY SI: ALTERED MENTAL STATUS VS: BP 147/101, P 98, T 97.2, RR 20, SpO2 98 IS: RISPERIDONE 2mg LITHIUM 600mg HEPARIN SUBQ KLONOPIN 1mg MED/SURG STATUS
[2018-07-02 12:00] VITALS: BP 121/63
--- NOTE | 2018-07-02 13:25 | NUR ---
NURSE NOTES: Patient talkative, confused, ambulatory with walker; on room air, no sign of shortness of breath and chest pain; bed at lowest postion, call light within reach; will keep monitoring.
--- NOTE | 2018-07-02 13:51 | Pulmonology Progress Note ---
Assessment/Plan Assessment/Plan IMPRESSION: 1. Schizophrenia. 2. Dementia. DISCUSSION: At this time, the patient is stable. Her medications have been resumed and she is cooperating at this point in time. Dc back to facility once bed is available Subjective Interval Events: None new Constitutional: Reports: no symptoms HEENT: Repors: no symptoms Respiratory: Reports: no symptoms Cardiovascular: Reports: no symptoms Gastrointestinal/Abdominal: Reports: no symptoms Genitourinary: Reports: no symptoms Allergies: Coded Allergies: No Known Allergies (Unverified , 06/08/18) Objective Last 24 Hour Vital Signs Date Time Temp Pulse Resp B/P (MAP) Pulse Ox O2 Delivery O2 Flow Rate FiO2 07/02/18 12:00 98.8 83 20 121/63 (82) 98 07/02/18 09:00 Room Air 07/02/18 08:00 98.1 98 20 147/101 (116) 100 07/02/18 04:00 97.2 77 18 142/80 (100) 99 07/02/18 00:00 97.7 67 18 119/68 (85) 98 07/01/18 21:00 Room Air 07/01/18 20:00 97.9 70 18 135/70 (91) 96 07/01/18 16:00 97.7 92 18 139/86 (103) 98 Intake and Output 07/01/18 07/02/18 19:00 07:00 Intake Total 600 ml Balance 600 ml Intake Oral 600 ml # Voids 3 3 General Appearance: no acute distress HEENT: normocephalic Respiratory/Chest: chest wall non-tender, lungs clear Cardiovascular: normal peripheral pulses, normal rate Abdomen: normal bowel sounds Microbiology Date/Time Source Procedure Growth Status 06/30/18 09:30 Nasal Nares MRSA Culture - Final NO METHICILLIN RESISTANT STAPH AUREUS... Complete 06/30/18 09:30 Rectum VRE Culture - Final NO VANCOMYCIN RESISTANT ENTEROCOCCUS ... Complete 06/30/18 09:30 Rectum - Final NO CARBAPENEM-RESISTANT ENTEROBACTERI... Complete Current Medications Medications (Trade) Dose Ordered Sig/Marina Route PRN Reason Start Time Stop Time Status Last Admin Dose Admin Clonazepam (KlonoPIN) 1 mg DAILY ORAL 07/01/18 09:00 07/08/18 08:59 07/02/18 08:36 Heparin Sodium (Porcine) (Heparin 5000 units/ml) 5,000 units EVERY 12 HOURS SUBQ 06/30/18 21:00 07/30/18 20:59 07/02/18 08:42 [place] Carbonate ([place]ne Carbonate) 300 mg DAILY ORAL 07/01/18 09:00 07/31/18 08:59 07/02/18 08:37 [place] Carbonate ([place] Carbonate) 600 mg BEDTIME ORAL 06/30/18 21:00 07/30/18 20:59 07/01/18 21:15 Lorazepam (Ativan) 2 mg BIDPRN PRN ORAL For Anxiety 07/01/18 16:45 07/08/18 16:44 Nicotine (Nicoderm) 1 patch DAILY TDERMAL 07/01/18 09:00 07/31/18 08:59 07/02/18 08:36 Risperidone (RisperDAL) 2 mg BID ORAL 06/30/18 18:00 07/30/18 17:59 07/02/18 08:37 James Silvestre MD Jul 02, 2018 13:51
[2018-07-02 16:00] VITALS: BP 145/87
--- NOTE | 2018-07-02 16:02 | General Progress Note ---
Assessment/Plan Problem List: (1) Schizoaffective disorder, bipolar type ICD Codes: F25.0 - Schizoaffective disorder, bipolar type SNOMED: 43282947 Assessment/Plan lithium riperdal klonopin ativan prn provided ro/st dc restraints Subjective Date patient seen: Jul 01, 2018 Neurologic/Psychiatric: Reports: anxiety, depressed, emotional problems Allergies: Coded Allergies: No Known Allergies (Unverified , 06/08/18) Subjective [employer] was down last night/late entry Objective Last 24 Hour Vital Signs Date Time Temp Pulse Resp B/P (MAP) Pulse Ox O2 Delivery O2 Flow Rate FiO2 07/02/18 12:00 98.8 83 20 121/63 (82) 98 07/02/18 09:00 Room Air 07/02/18 08:00 98.1 98 20 147/101 (116) 100 07/02/18 04:00 97.2 77 18 142/80 (100) 99 07/02/18 00:00 97.7 67 18 119/68 (85) 98 07/01/18 21:00 Room Air 07/01/18 20:00 97.9 70 18 135/70 (91) 96 Intake and Output 07/01/18 07/02/18 18:59 06:59 Intake Total 600 ml Balance 600 ml Intake Oral 600 ml # Voids 3 3 Height (Feet): 5 Height (Inches): 2.00 Weight (Pounds): 167 General Appearance: alert, confused, agitated Bradford Randall MD Jul 02, 2018 16:02
--- NOTE | 2018-07-02 19:30 | NUR ---
NURSE NOTES: RECEIVED PATIENT LYING IN BED, AWAKE, ALERT/ORIENTED TO PERSON/PLACE, CONFUSED/FORGETFUL, REALITY ORIENTATION PROVIDED, REQUIRE FREQUENT REINFORCEMENT. DENIES PAIN. NO SIGNS AND SYMPTOMS OF ACUTE CARDIO RESPIRATORY DISTRESS/SHORTNESS OF BREATH, DENIES CHEST PAIN, NO EDEMA NOTED. CONTINENT OF B/B, BATHROOM PRIVILEGES WITH SUPERVISION. COMFORT CARE PROVIDED, SIDE RAILS UP X3/BED IN LOWEST POSITION FOR SAFETY. CALL LIGHT WITHIN REACH. NAD. BED ALARM ACTIVATED FOR SAFETY. CONTINUE WITH CURRENT PLAN OF CARE.
--- NOTE | 2018-07-02 19:55 | NUR ---
HAND-OFF: Report given to ARELY Platt.
[2018-07-02 20:00] VITALS: BP 136/75
[2018-07-03] VITALS: BP 142/77
--- NOTE | 2018-07-03 00:11 | Cardiology Report ---
APPROVED REPORT EKG Measurement Heart [id number] Normal sinus rhythm Normal ECG
[2018-07-03 04:00] VITALS: BP 101/65
--- NOTE | 2018-07-03 06:47 | NUR ---
NURSE NOTES: RESTED WELL, NO SIGNIFICANT CHANGE OF CONDITION NOTED THROUGHOUT THE NIGHT. SAFETY MAINTAINED. NAD.
--- NOTE | 2018-07-03 07:30 | NUR ---
HAND-OFF: Report given to ARELY FLORES.
--- NOTE | 2018-07-03 07:30 | NUR ---
NURSE NOTES: Received pt verbally responsive but confused. ambulatory with assist. No SOB or acute respiratory distress noted. IV on RFA 22g. patent and intact. bed is locked and is in the lowest position. call light within easy reach. will continue to monitor.
[2018-07-03 08:00] VITALS: BP 121/75
[2018-07-03] MEDS: Heparin 5000 units/ml inj SUBQ SCH (08:22)
--- NOTE | 2018-07-03 10:53 | Pulmonology Progress Note ---
Assessment/Plan Assessment/Plan IMPRESSION: 1. Schizophrenia. 2. Dementia. DISCUSSION: At this time, the patient is stable. Her medications have been resumed and she is cooperating at this point in time. Dc back to facility once bed is available Subjective Interval Events: none Constitutional: Reports: no symptoms HEENT: Repors: no symptoms Respiratory: Reports: no symptoms Cardiovascular: Reports: no symptoms Gastrointestinal/Abdominal: Reports: no symptoms Genitourinary: Reports: no symptoms Allergies: Coded Allergies: No Known Allergies (Unverified , 06/08/18) Objective Last 24 Hour Vital Signs Date Time Temp Pulse Resp B/P (MAP) Pulse Ox O2 Delivery O2 Flow Rate FiO2 07/03/18 09:00 Room Air 07/03/18 08:00 97.3 85 20 121/75 (90) 97 07/03/18 04:00 97.5 62 19 101/65 (77) 98 07/03/18 00:00 97.9 82 18 142/77 (98) 99 07/02/18 21:33 Room Air 07/02/18 20:00 97.3 74 18 136/75 (95) 96 07/02/18 16:00 97.1 83 20 145/87 (106) 97 07/02/18 12:00 98.8 83 20 121/63 (82) 98 Intake and Output 07/02/18 07/03/18 19:00 07:00 Intake Total 740 ml 360 ml Output Total 900 ml Balance -160 ml 360 ml Intake Oral 740 ml 360 ml Output Urine Total 900 ml # Voids 3 General Appearance: no acute distress HEENT: normocephalic Respiratory/Chest: chest wall non-tender, lungs clear Cardiovascular: normal peripheral pulses, normal rate Abdomen: normal bowel sounds Current Medications Medications (Trade) Dose Ordered Sig/Marina Route PRN Reason Start Time Stop Time Status Last Admin Dose Admin Clonazepam (KlonoPIN) 1 mg DAILY ORAL 07/01/18 09:00 07/08/18 08:59 07/03/18 08:18 Heparin Sodium (Porcine) (Heparin 5000 units/ml) 5,000 units EVERY 12 HOURS SUBQ 06/30/18 21:00 07/30/18 20:59 07/03/18 08:22 [place] Carbonate ([place] Carbonate) 300 mg DAILY ORAL 07/01/18 09:00 07/31/18 08:59 07/03/18 08:18 [place] Carbonate ([place] Carbonate) 600 mg BEDTIME ORAL 06/30/18 21:00 07/30/18 20:59 07/02/18 20:58 Lorazepam (Ativan) 2 mg BIDPRN PRN ORAL For Anxiety 07/01/18 16:45 07/08/18 16:44 Nicotine (Nicoderm) 1 patch DAILY TDERMAL 07/01/18 09:00 07/31/18 08:59 07/03/18 08:18 Risperidone (RisperDAL) 2 mg BID ORAL 06/30/18 18:00 07/30/18 17:59 07/03/18 08:18 James Silvestre MD Jul 03, 2018 10:53
--- NOTE | 2018-07-03 11:30 | NUR ---
NURSE NOTES: [facility] spoke with Cyndi for report and verified address. notified Patricia, for discharge. personal belongings reviewed and noted. discharge instructions given. will call ambulance for transportation. will cont the plan of care.
[2018-07-03 12:00] VITALS: BP 131/69
[2018-07-03 16:00] VITALS: BP 142/75
--- NOTE | 2018-07-03 16:15 | NUR ---
NURSE NOTES: discharge with instructions via ambulance. removed IV heplock. in stable condition. no c/o pain/discomfort noted.
--- NOTE | 2018-07-04 00:37 | General Progress Note ---
Assessment/Plan Problem List: (1) Schizoaffective disorder, bipolar type ICD Codes: F25.0 - Schizoaffective disorder, bipolar type SNOMED: 40008636 Assessment/Plan lithium riperdal klonopin ativan prn provided ro/st dc restraints Subjective Neurologic/Psychiatric: Reports: anxiety, depressed, emotional problems Allergies: Coded Allergies: No Known Allergies (Unverified , 06/08/18) Objective Last 24 Hour Vital Signs Date Time Temp Pulse Resp B/P (MAP) Pulse Ox O2 Delivery O2 Flow Rate FiO2 07/03/18 16:00 98.1 84 20 142/75 (97) 100 07/03/18 12:00 97.5 81 16 131/69 (89) 96 07/03/18 09:00 Room Air 07/03/18 08:00 97.3 85 20 121/75 (90) 97 07/03/18 04:00 97.5 62 19 101/65 (77) 98 Intake and Output 07/03/18 07/04/18 18:59 06:59 Intake Total 240 ml Balance 240 ml Intake Oral 240 ml # Voids 3 # Bowel Movements 1 Height (Feet): 5 Height (Inches): 2.00 Weight (Pounds): 167 General Appearance: alert, confused, agitated Bradford Randall MD Jul 04, 2018 00:37
--- NOTE | 2018-07-06 12:44 | Discharge Summary ---
Discharge Summary Discharge Summary _ DATE OF ADMISSION: 06/30/2018 DATE OF DISCHARGE: 07/03/2018 DISCHARGED BY: Dr. Silvestre REASON FOR ADMISSION: 62 years old female with past medical history of schizophrenia and dementia, was transferred from the assisted living as it was reported that she was difficult to control. Patient was not eating , was agitated, wandering around and exhibited overall bizarre behavior. Upon evaluation vital signs were stable. Laboratory workup revealed no leukocytosis, stable hemoglobin and hematocrit. Urinalysis revealed no evidence of urinary tract infection. Stable electrolytes. Stable renal parameters and LFT. Glucose 94. Troponin negative. Patient admitted for further management CONSULTANTS: psychiatrist [facility]: Patient admitted to medical surgical floor. Laboratory workup was unremarkable. Psychiatrist evaluation was requested. Psychiatrist diagnosed patient with a schizoaffective disorder bipolar type. Psychiatric medication regimen were optimized as per psychiatrist. Reality orientation and supportive therapy provided. After few days on current psychiatric medication regimen, patient behavior improved. Patient stabilized and was ready for transfer back to assisted living. FINAL DIAGNOSES: Schizoaffective disorder bipolar type Schizophrenia Dementia DISCHARGE MEDICATIONS: See Medication Reconciliation list. DISCHARGE INSTRUCTIONS: Patient was discharged home. Follow up with primary care provider in one week. I have been assigned to dictate discharge summary for this account. I was not involved in the patient's management. Madiha Galarza NP Jul 06, 2018 12:44
== END 2018-07-03 16:00 | disposition home or self-care (01) | DRG 750 ==
LOC: EDBD 08:44 → EMR 09:43 → EDBEDREQ 13:44 → 4E 14:15 → OBSVTOIN 14:15 → 4E 17:01
DX: F25.0 Schizoaffective disorder, bipolar type (principal); F03.91 Unspecified dementia, unspecified severity, with behavioral disturbance
CPT/HCPCS: 36415; 80053; 81003; 83690; 84484; 85025; 87081; 93005; 96365; 96366; 96372; 96374; 96376; 99285

== ENCOUNTER 2018-07-11 20:29 | Inpatient (IN) | payer MEDICAID ==
[~2018-07-11] VITALS: Ht 165.1 cm; Wt 69.1 kg
--- NOTE | 2018-07-11 20:35 | NUR ---
ED Nurse Note: B[facility]AN [facility] from [facility] for behavioral evaluation. pt repeatingly stating that she wants to go back. per ems, pt is agitated and was smoking on the rooms of other pt in the facility. seen ermd. will continue to monitor.
[2018-07-11] MEDS ORDERED: RISPERDAL2 MG ORAL (20:48)
[2018-07-11] MEDS ORDERED: DOCUSIL100 M1 ORAL (20:48)
[2018-07-11] MEDS ORDERED: Haloperidol 5mg/ml Inj IM ONE (21:00)
[2018-07-11] MEDS ORDERED: DiphenhydrAMINE 50mg/ml Inj IM ONE (21:00)
[2018-07-11] MEDS ORDERED: LORazepam Inj 2mg/ml 1ml IV ONE (21:00)
[2018-07-11 21:38] LABS: BASOPHILS % (AUTO) 1.1 % (0.0-2.0); EOSINOPHILS % (AUTO) 1.4 % (0.0-3.0); HEMATOCRIT 44.4 % (37.0-47.0); HEMOGLOBIN 14.6 G/DL (12.0-16.0); LYMPHOCYTES % (AUTO) 15.7 % (20.0-45.0); MEAN CORPUSCULAR VOLUME 90 FL (80-99); MONOCYTES % (AUTO) 6.1 % (1.0-10.0); NEUTROPHILS % (AUTO) 75.7 % (45.0-75.0); PLATELET COUNT 269 K/UL (150-450); RED BLOOD COUNT 4.95 M/UL (4.20-5.40); RED CELL DISTRIBUTION WIDTH 11.3 % (11.6-14.8); WHITE BLOOD COUNT 12.6 K/UL (4.8-10.8)
[2018-07-11 21:57] LABS: ANION GAP 10 mmol/L (5-15); BLOOD UREA NITROGEN 15 mg/dL (7-18); CARBON DIOXIDE 28 MMOL/L (21-32); CHLORIDE 105 MMOL/L (98-107); CREATININE 0.7 MG/DL (0.55-1.30); SODIUM 143 MMOL/L (136-145)
[2018-07-11 22:02] LABS: ALANINE AMINOTRANSFERASE 17 U/L (12-78); ALBUMIN 3.9 G/DL (3.4-5.0); ALKALINE PHOSPHATASE 92 U/L (46-116); ASPARTATE AMINO TRANSFERASE 14 U/L (15-37); BILIRUBIN,TOTAL 0.3 MG/DL (0.2-1.0); CREATINE KINASE 41 U/L (26-308)
--- NOTE | 2018-07-11 22:22 | Emergency Room Report ---
History of Present Illness General Chief Complaint: General Complaint Source: Patient, Medical Record, EMS Present Illness HPI The patient was sent in from her [facility] facility for paranoid ideation and failure to comply with the staff. She denies suicidal ideation but is refusing to take medication. She does complain of wheezing and coughing. There 's been no fever or chills. She denies any chest pain abdominal pain extremity pain or back pain at this time. There is no headache or rashes. She denies dysuria. She states she is moving her bowels without difficulty. The patient suffers from dementia. Patient takes lithium. Unknown compliance. Allergies: Coded Allergies: No Known Allergies (Unverified , 06/08/18) Patient History Past Medical History: see triage record Social History: Reports: smoking Social History Narrative [facility] Reviewed Nursing Documentation: PMH: Agreed; PSxH: Agreed Nursing Documentation-PMH Past Medical History: No History, Except For Hx Cardiac Problems: No Hx Cancer: No Hx Gastrointestinal Problems: No History Of Psychiatric Problem: Yes - bipolar , dementia Hx Neurological Problems: Yes Hx Dementia: Yes Review of Systems All Other Systems: negative except mentioned in HPI Physical Exam Vital Signs Date Time Temp Pulse Resp B/P (MAP) Pulse Ox O2 Delivery O2 Flow Rate FiO2 07/11/18 20:39 98.1 86 18 131/84 94 Nasal Cannula 2.0 Sp02 EP Interpretation: reviewed, normal General Appearance: well appearing, no apparent distress, other - GCS 14 Head: normocephalic Eyes: bilateral eye normal inspection, bilateral eye PERRL, bilateral eye EOMI ENT: moist mucus membranes Neck: supple Respiratory: wheezing, expiration Cardiovascular #1: regular rate, rhythm, no edema Cardiovascular #2: 2+ radial (R) Gastrointestinal: normal inspection, normal bowel sounds, non tender, no mass, non-distended Musculoskeletal: back normal, gait/station normal, normal range of motion Neurologic: alert, grossly normal, oriented - Tenderness to Psychiatric: no suicidal/homicidal ideation, other - Paranoid and refusing care Skin: normal inspection, warm/dry Medical Decision Making Diagnostic Impression: Primary Impression: Altered mental status Qualified Codes: R41.82 - Altered mental status, unspecified Additional Impressions: Schizoaffective disorder, bipolar type Bronchospasm ER Course Patient presents with refusal of care at the [id number]. Differential includes exacerbation of schizoaffective bipolar disorder, electrolyte imbalance, myocardial injury, occult infection amongst others. Patient is evaluated with EKG, chest x-ray and labs. Patient refused EKG and further treatment. She was given Haldol, Ativan and Benadryl. Patient more calm at this time. EKG with RAD. No injury. Labs with leukocytosis. UA clear. The patient was discussed with Dr. Higginbotham who agrees with further evaluation and observation. Laboratory Tests Test 07/11/18 21:10 07/11/18 22:45 White Blood Count 12.6 K/UL (4.8-10.8) H Red Blood Count 4.95 M/UL (4.20-5.40) Hemoglobin 14.6 G/DL (12.0-16.0) Hematocrit 44.4 % (37.0-47.0) Mean Corpuscular Volume 90 FL (80-99) Mean Corpuscular Hemoglobin 29.4 PG (27.0-31.0) Mean Corpuscular Hemoglobin Concent 32.8 G/DL (32.0-36.0) Red Cell Distribution Width 11.3 % (11.6-14.8) L Platelet Count 269 K/UL (150-450) Mean Platelet Volume 6.8 FL (6.5-10.1) Neutrophils (%) (Auto) 75.7 % (45.0-75.0) H Lymphocytes (%) (Auto) 15.7 % (20.0-45.0) L Monocytes (%) (Auto) 6.1 % (1.0-10.0) Eosinophils (%) (Auto) 1.4 % (0.0-3.0) Basophils (%) (Auto) 1.1 % (0.0-2.0) Sodium Level 143 MMOL/L (136-145) Potassium Level 4.0 MMOL/L (3.5-5.1) Chloride Level 105 MMOL/L (98-107) Carbon Dioxide Level 28 MMOL/L (21-32) Anion Gap 10 mmol/L (5-15) Blood Urea Nitrogen 15 mg/dL (7-18) Creatinine 0.7 MG/DL (0.55-1.30) Estimate Glomerular Filtration Rate > 60 mL/min (>60) Glucose Level 98 MG/DL (74-106) Calcium Level 10.0 MG/DL (8.5-10.1) Total Bilirubin 0.3 MG/DL (0.2-1.0) Aspartate Amino Transferase (AST) 14 U/L (15-37) L Alanine Aminotransferase (ALT) 17 U/L (12-78) Alkaline Phosphatase 92 U/L (46-116) Total Creatine Kinase 41 U/L (26-308) Troponin I 0.000 ng/mL (0.000-0.056) Total Protein 7.9 G/DL (6.4-8.2) Albumin 3.9 G/DL (3.4-5.0) Globulin 4.0 g/dL Albumin/Globulin Ratio 1.0 (1.0-2.7) Salicylates Level 1.9 ug/mL (2.8-20) L Acetaminophen Level < 2 MCG/ML (10-30) L Serum Alcohol < 3 mg/dL Urine Color Pale yellow Urine Appearance Clear Urine pH 6 (4.5-8.0) Urine Specific Switchback 1.015 (1.005-1.035) Urine Protein Negative (NEGATIVE) Urine Glucose (UA) Negative (NEGATIVE) Urine Ketones 1+ (NEGATIVE) H Urine Blood Negative (NEGATIVE) Urine Nitrite Negative (NEGATIVE) Urine Bilirubin Negative (NEGATIVE) Urine Urobilinogen Normal MG/DL (0.0-1.0) Urine Leukocyte Esterase Negative (NEGATIVE) Urine Opiates Screen Negative (NEGATIVE) Urine Barbiturates Screen Negative (NEGATIVE) Phencyclidine (PCP) Screen Negative (NEGATIVE) Urine Amphetamines Screen Negative (NEGATIVE) Urine Benzodiazepines Screen Negative (NEGATIVE) Urine Cocaine Screen Negative (NEGATIVE) Urine Marijuana (THC) Screen Negative (NEGATIVE) EKG Diagnostic Results Rate: normal Rhythm: NSR ST Segments: no acute changes - R axis, NSSTTW changes Rhythm Strip Diag. Results EP Interpretation: yes Rhythm: NSR, no PVC's, no ectopy Chest X-Ray Diagnostic Results Chest X-Ray Diagnostic Results : Chest X-Ray Ordered: Yes # of Views/Limited/Complete: 1 View Indication: Other EP Interpretation: Yes Interpretation: no effusion, no pneumothorax, other - reversal of flow Impression: Other Electronically Signed by: Electronically signed by Jareth Deras MD Last Vital Signs Date Time Temp Pulse Resp B/P (MAP) Pulse Ox O2 Delivery O2 Flow Rate FiO2 07/11/18 23:29 98.1 86 18 131/84 94 Nasal Cannula 2.0 Status: improved Disposition: ADMITTED INPATIENT Condition: Serious Jareth Deras MD Jul 11, 2018 22:22
--- NOTE | 2018-07-11 22:50 | NUR ---
Sleepy , continuously asking to back home. In and out urine sample abtained, delivered to lab. Patient back to sleep.
[2018-07-11 23:08] LABS: APPEARANCE,URINE CLEAR; BILIRUBIN, URINE NEGATIVE (NEGATIVE); COLOR,URINE PALE YELLOW; GLUCOSE, URINE (UA) NEGATIVE (NEGATIVE); KETONES,URINE 1+ (NEGATIVE); LEUKOCYTE ESTERASE ,URINE NEGATIVE (NEGATIVE); NITRITE,URINE NEGATIVE (NEGATIVE); PH,URINE 6 (4.5-8.0); PROTEIN,URINE NEGATIVE (NEGATIVE); UROBILINOGEN,URINE NORMAL MG/DL (0.0-1.0)
[2018-07-11 23:29] VITALS: BP 131/84
--- NOTE | 2018-07-12 00:25 | NUR ---
ED Nurse Note: Report given to Ramirez/Sherri/ RN. But need to wait for accepting MD to be confirmed.
--- NOTE | 2018-07-12 00:30 | NUR ---
ED Nurse Note: Received report from James/Charge. Pt is sleeping at this time, sitter at bed side, will continue to monitor.
--- NOTE | 2018-07-12 03:35 | NUR ---
TRANSFER TO FLOOR: Patient transferred to /S 406 as ordered . Report given to Sherri/RN. Belongings sent with pt and rechecked with RN. Pt is A/O X3. Sitter at bedside.
--- NOTE | 2018-07-12 03:54 | NUR ---
NURSE NOTES: Received patient from ER, arrived via gurney, orders received from Dr Silvestre. Sitter at the bedside, patient awake but drowsy, aware of self, time, place. VSS at arrival. Belongings checked, pt oriented to room. Bed on lowest position, call light and belongings within reach.
[2018-07-12 04:11] VITALS: BP 135/56
--- NOTE | 2018-07-12 07:06 | NUR ---
HAND-OFF: Report given to RUSH Sidhu.
[2018-07-12 08:00] VITALS: BP 138/69
--- NOTE | 2018-07-12 08:19 | NUR ---
NURSE NOTES: Patient is alert and oriented X4. Patient is ambulatory, and ambulating around room and hallway. Patient has no reports of discomfort at the moment. Patient moved closer to nurse's station. Will continue to monitor.
[2018-07-12] MEDS: Docusate 100mg cap ORAL SCH ×2 (09:12→18:22)
[2018-07-12] MEDS: LORazepam 1mg tab ORAL SCH ×2 (09:13→18:22)
--- NOTE | 2018-07-12 10:12 | NUR ---
PROGRAM MANAGEMENT MANAGERINTERNET DEVELOPER 62 Y/O FEMALE BIBA FROM [facility] TO [facility] ER CC:GENERAL COMPLAINT SI:ALTERED MENTAL STATUS VS: BP 131/84, P 86, T 98.0, RR 18, SpO2 94 on 2.0L NC WBC 12.6, IS:LITHIUM 600mh LORAZEPAM 1mg RISPERIDONE 2mg MED/SURG STATUS Addendum: 07/12/18 at 1030 by Rylee Rhodes LVN DC PLAN: RETURN TO [facility]
--- NOTE | 2018-07-12 11:37 | NUR ---
HAND-OFF: Report given to RUSH Guzman.
[2018-07-12 12:00] VITALS: BP 136/87
--- NOTE | 2018-07-12 12:29 | Diagnostic Imaging Report ---
Indication: Chest pain Technique: One view of the chest Comparison: 06/08/2018 Findings: Questionable mild interstitial prominence and central bronchial wall thickening appears similar to the previous study. Heart size is normal. The pleural spaces are clear. No focal airspace consolidation. Impression: Questionable mild interstitial prominence, if real could indicate mild interstitial congestion versus COPD changes. Correlate with clinical findings
[2018-07-12 16:00] VITALS: BP 137/60
--- NOTE | 2018-07-12 16:30 | History and Physical Report ---
DATE OF ADMISSION: 07/12/2018 HISTORY OF PRESENT ILLNESS: This is a 62-year-old female, who has a history of underlying psych disorder. She has bipolar and also has dementia. She was sent in from a board and care for failure to comply with staff and paranoia. She was not suicidal, but she was refusing her medications. The patient also reported a dry cough, but no fever or chills. She had no other medical symptoms. She was admitted to the hospital because of lack of placement. PAST HISTORY: Cognitive impairment, bipolar disorder, dementia. REVIEW OF SYSTEMS: Denies any headaches, hematemesis, melena, hematochezia, night sweats, or weight loss. SOCIAL HISTORY: She admits to tobacco use. Denies any other substances. CURRENT MEDICATIONS: Include lithium, Colace, Ativan, NicoDerm, and Risperdal. ALLERGIES: None reported. PHYSICAL EXAMINATION: VITAL SIGNS: Blood pressure 130/60, heart rate 64, respirations , afebrile. GENERAL: Reveals a 62-year-old female. HEENT: Unremarkable. LUNGS: Clear breath sounds bilaterally. CARDIAC: Normal heart sounds. ABDOMEN: Soft. NEUROLOGIC: Nonfocal. LABORATORY DATA: Laboratory testing unremarkable. IMPRESSION: 1. Mild leukocytosis. 2. Bipolar disorder. 3. Dementia. 4. Failure to comply with staff. DISCUSSION: Admitted to the hospital. We will consult Psychiatry. The patient will need placement. We will also consult case management to follow. James Silvestre M.D. DR: NITHIN JOB#: [id number] CC:
--- NOTE | 2018-07-12 19:11 | NUR ---
HAND-OFF: Report given to RUSH Knowles.
--- NOTE | 2018-07-12 19:15 | NUR ---
NURSE NOTES: Received a report from RUSH Gillespie. Pt is in stable condition. Confused. On room air. No c/o pain/discomfort. IV site is patent and intact. Bed in lowest position. Call light within reach. Will continue to monitor.
[2018-07-12 20:00] VITALS: BP 146/83
[2018-07-13] VITALS: BP 130/76
[2018-07-13 04:00] VITALS: BP 108/57
--- NOTE | 2018-07-13 07:10 | NUR ---
HAND-OFF: Report given to Beth Michelle LVN.
[2018-07-13 08:00] VITALS: BP 136/83
[2018-07-13] MEDS: Docusate 100mg cap ORAL SCH ×2 (08:22→17:26)
[2018-07-13] MEDS: LORazepam 1mg tab ORAL SCH ×2 (08:22→17:26)
--- NOTE | 2018-07-13 08:56 | NUR ---
RECEIVED PATIENT OUT OF BED AMBULATING AROUND THE ROOM.. RESTLESS AND UNABLE TO STAY IN ONE PLACE... BEHAVIOR YELLING AND CRYING AT TIMES HAS PERIOD OF DEPRESSIONS NOTED PATIENT SITTING CLOSE TO THE NURSE STATION DUE TO PATIENT.. HAVING CONVERSATION WITH NURSING STAFF.. NO ACUTE DISTRESS.. CALL LIGHT IN REACH
--- NOTE | 2018-07-13 11:14 | Consultation ---
History of Present Illness General Chief Complaint: General Complaint Present Illness HPI 62 yo female presents emergency department today with altered mental status. the pt has history of dementia and schizophrenia. the pt is delusional and disorganized Allergies: Coded Allergies: No Known Allergies (Unverified , 06/08/18) Medication History Scheduled Benztropine Mesylate* (Cogentin*), 0.5 MG PO BID, (Reported) Docusate Sodium* (Docusil*), 100 MG ORAL TWICE A DAY, (Reported) [place] Carbonate* (Short Pump*), 300 MG ORAL DAILY, (Reported) [place] Carbonate* (Short Pump*), 600 MG ORAL BEDTIME, (Reported) Lorazepam* (Lorazepam*), 1 MG ORAL BID, (Reported) Nicotine (Nicotine Patch), 7 MG TD DAILY, (Reported) Risperidone* (Risperdal*), 2 MG ORAL BID, (Reported) Risperidone* (Risperdal*), 2 MG ORAL DAILY, (Reported) Varenicline Tartrate (Chantix), 0.5 MG PO BID, (Reported) Patient History History Provided By: Patient, Medical Record, PMD Healthcare decision maker Resuscitation status Full Code Advanced Directive on File No Past Medical/Surgical History Past Medical/Surgical History: (1) Electrolyte imbalance (2) Schizoaffective disorder, bipolar type (3) Altered mental status Review of Systems Psychiatric: Reports: prior hx, anxiety, depressed feelings, emotional problems , hallucinations Physical Exam General Appearance: no apparent distress, alert, confused Neurologic: disoriented, depressed affect Last 24 Hour Vital Signs Date Time Temp Pulse Resp B/P (MAP) Pulse Ox O2 Delivery O2 Flow Rate FiO2 07/13/18 09:00 Room Air 07/13/18 08:00 98.2 85 18 136/83 (100) 98 07/13/18 04:00 98.3 62 17 108/57 (74) 95 07/13/18 00:00 98.0 77 16 130/76 (94) 96 07/12/18 21:00 Room Air 07/12/18 20:00 98.7 83 17 146/83 (104) 95 07/12/18 16:00 98.2 80 20 137/60 (85) 98 07/12/18 12:00 97.1 73 20 136/87 (103) 99 Intake and Output 07/12/18 07/13/18 19:00 07:00 Intake Total 250 ml 360 ml Output Total 500 ml Balance -250 ml 360 ml Intake Oral 250 ml 360 ml Output Urine Total 500 ml # Voids 3 Height (Feet): 5 Height (Inches): 5.00 Weight (Pounds): 155 Medications Current Medications Medications (Trade) Dose Ordered Sig/Marina Route PRN Reason Start Time Stop Time Status Last Admin Dose Admin Docusate Sodium (Colace) 100 mg TWICE A DAY ORAL 07/12/18 09:00 08/11/18 08:59 07/13/18 08:22 [place] Carbonate ([place] Carbonate) 300 mg DAILY ORAL 07/12/18 09:00 08/11/18 08:59 07/13/18 08:23 [place] Carbonate ([place] Carbonate) 600 mg BEDTIME ORAL 07/12/18 21:00 08/11/18 20:59 07/12/18 20:56 Lorazepam (Ativan) 1 mg BID ORAL 07/12/18 09:00 07/19/18 08:59 07/13/18 08:22 Nicotine (Nicoderm) 1 patch DAILY TDERMAL 07/12/18 09:00 08/11/18 08:59 07/13/18 08:22 Risperidone (RisperDAL) 2 mg DAILY ORAL 07/12/18 18:00 08/11/18 17:59 07/13/18 08:22 Assessment/Plan Problem List: (1) Schizoaffective disorder, bipolar type ICD Codes: F25.0 - Schizoaffective disorder, bipolar type SNOMED: 35219492 Status: stable Assessment/Plan cont current meds provided ro/Bradford Williamson MD Jul 13, 2018 11:14
[2018-07-13 12:00] VITALS: BP 132/78
--- NOTE | 2018-07-13 12:16 | NUR ---
PATIENT IS SLEEPING AT THIS TIME NO ACUTE DISTRESS.. CALL LIGHT IN REACH
--- NOTE | 2018-07-13 12:29 | Pulmonology Progress Note ---
Assessment/Plan Assessment/Plan IMPRESSION: 1. Mild leukocytosis. 2. Bipolar disorder. 3. Dementia. 4. Failure to comply with staff. DISCUSSION: Admitted to the hospital. Seen by Psychiatry. The patient will need placement. I will also consult case management to follow. Subjective Interval Events: None new Constitutional: Reports: no symptoms HEENT: Repors: no symptoms Respiratory: Reports: no symptoms Cardiovascular: Reports: no symptoms Gastrointestinal/Abdominal: Reports: no symptoms Genitourinary: Reports: no symptoms Allergies: Coded Allergies: No Known Allergies (Unverified , 06/08/18) Objective Last 24 Hour Vital Signs Date Time Temp Pulse Resp B/P (MAP) Pulse Ox O2 Delivery O2 Flow Rate FiO2 07/13/18 12:00 98.2 82 20 132/78 (96) 97 07/13/18 09:00 Room Air 07/13/18 08:00 98.2 85 18 136/83 (100) 98 07/13/18 04:00 98.3 62 17 108/57 (74) 95 07/13/18 00:00 98.0 77 16 130/76 (94) 96 07/12/18 21:00 Room Air 07/12/18 20:00 98.7 83 17 146/83 (104) 95 07/12/18 16:00 98.2 80 20 137/60 (85) 98 Intake and Output 07/12/18 07/13/18 19:00 07:00 Intake Total 250 ml 360 ml Output Total 500 ml Balance -250 ml 360 ml Intake Oral 250 ml 360 ml Output Urine Total 500 ml # Voids 3 General Appearance: no acute distress HEENT: normocephalic Respiratory/Chest: chest wall non-tender, lungs clear Cardiovascular: normal peripheral pulses, normal rate Abdomen: normal bowel sounds, soft, non tender Current Medications Medications (Trade) Dose Ordered Sig/Marina Route PRN Reason Start Time Stop Time Status Last Admin Dose Admin Docusate Sodium (Colace) 100 mg TWICE A DAY ORAL 07/12/18 09:00 08/11/18 08:59 07/13/18 08:22 [place] Carbonate ([place] Carbonate) 300 mg DAILY ORAL 07/12/18 09:00 08/11/18 08:59 07/13/18 08:23 [place] Carbonate ([place] Carbonate) 600 mg BEDTIME ORAL 07/12/18 21:00 08/11/18 20:59 07/12/18 20:56 Lorazepam (Ativan) 1 mg BID ORAL 07/12/18 09:00 07/19/18 08:59 07/13/18 08:22 Nicotine (Nicoderm) 1 patch DAILY TDERMAL 07/12/18 09:00 08/11/18 08:59 07/13/18 08:22 Risperidone (RisperDAL) 3 mg BEDTIME ORAL 07/13/18 21:00 08/12/18 20:59 James Silvestre MD Jul 13, 2018 12:29
--- NOTE | 2018-07-13 13:06 | NUR ---
LANDSCAPE ARTISTGROUND NUCLEAR WEAPONS ASSEMBLY OFFICER SI:ALTERED MENTAL STATUS VS: BP 108, P 62, T 98.3, RR 16, SpO2 95 IS:RISPERIDONE 2mg LITHIUM CARBONATE 300mg ATIVAN 1mg MED/SURG STATUS
--- NOTE | 2018-07-13 15:51 | NUR ---
*-* INSURANCE *-* ALL CLINICALS AND REVIEWS HAVE BEEN FAXED TO: ROMEL Amezquita [phone] *[id number] F [phone]
[2018-07-13 16:00] VITALS: BP 128/80
--- NOTE | 2018-07-13 19:18 | NUR ---
NURSE NOTES: Received a report from Beth Michelle LVN. Pt is in stable condition. Confused. On room air. No c/o pain/discomfort. IV site is patent and intact. Bed in lowest position. Call light within reach. Will continue to monitor.
[2018-07-13 20:00] VITALS: BP 132/72
--- NOTE | 2018-07-13 21:28 | Cardiology Report ---
APPROVED REPORT EKG Measurement Heart [id number] Normal sinus rhythm Rightward axis Cannot rule out Anterior infarct, age undetermined T wave abnormality, consider lateral ischemia Abnormal ECG
[2018-07-14] VITALS: BP 121/69
--- NOTE | 2018-07-14 03:58 | NUR ---
NURSE NOTES: Pt is received from out going RN Thea Be. Pt is awake, verbal and ambulatory. Vitals stable. Pt is awaiting discharge placement to a psych facility. Pt is instructed to call for assistance before getting out of bed. Bed low in position,side rails up and call light within reach. Pt will be monitored.
[2018-07-14 04:00] VITALS: BP 105/63
--- NOTE | 2018-07-14 04:02 | NUR ---
HAND-OFF: Report given to RUSH Smalls.
--- NOTE | 2018-07-14 05:37 | NUR ---
NURSE NOTES: Pt is awake ,verbal and ambulatory. No acute distress noted.
--- NOTE | 2018-07-14 07:05 | NUR ---
HAND-OFF: Report given to Beth Grace LVN.Pt is awake and verbal. No acute distress noted.
--- NOTE | 2018-07-14 07:33 | Pulmonology Progress Note ---
Assessment/Plan Assessment/Plan IMPRESSION: 1. Mild leukocytosis. 2. Bipolar disorder. 3. Dementia. 4. Failure to comply with staff. DISCUSSION: Admitted to the hospital. Seen by Psychiatry. The patient will need placement. Discussed with direct care staffer Subjective Interval Events: No new complaints Constitutional: Reports: no symptoms HEENT: Repors: no symptoms Respiratory: Reports: no symptoms Cardiovascular: Reports: no symptoms Gastrointestinal/Abdominal: Reports: no symptoms Genitourinary: Reports: no symptoms Neurologic: Reports: no symptoms Allergies: Coded Allergies: No Known Allergies (Unverified , 06/08/18) Objective Last 24 Hour Vital Signs Date Time Temp Pulse Resp B/P (MAP) Pulse Ox O2 Delivery O2 Flow Rate FiO2 07/14/18 04:00 98.3 72 16 105/63 (77) 98 07/14/18 00:00 97.8 61 15 121/69 (86) 95 07/13/18 22:18 Room Air 07/13/18 20:00 97.9 74 16 132/72 (92) 97 07/13/18 16:00 97.5 18 128/80 (96) 96 07/13/18 12:00 98.2 82 20 132/78 (96) 97 07/13/18 09:00 Room Air 07/13/18 08:00 98.2 85 18 136/83 (100) 98 Intake and Output 07/13/18 07/14/18 19:00 07:00 Intake Total 960 ml Balance 960 ml Intake Oral 960 ml # Voids 3 General Appearance: no acute distress HEENT: normocephalic Respiratory/Chest: chest wall non-tender, lungs clear Cardiovascular: normal peripheral pulses, normal rate Current Medications Medications (Trade) Dose Ordered Sig/Marina Route PRN Reason Start Time Stop Time Status Last Admin Dose Admin Docusate Sodium (Colace) 100 mg TWICE A DAY ORAL 07/12/18 09:00 08/11/18 08:59 07/13/18 17:[address] [place] Carbonate ([place] Carbonate) 300 mg DAILY ORAL 07/12/18 09:00 08/11/18 08:59 07/13/18 08:[address] [place] Carbonate ([place] Carbonate) 600 mg BEDTIME ORAL 07/12/18 21:00 08/11/18 20:59 07/13/18 20:11 Lorazepam (Ativan) 1 mg BID ORAL 07/12/18 09:00 07/19/18 08:59 07/13/18 17:26 Nicotine (Nicoderm) 1 patch DAILY TDERMAL 07/12/18 09:00 08/11/18 08:59 07/13/18 08:22 Risperidone (RisperDAL) 3 mg BEDTIME ORAL 07/13/18 21:00 08/12/18 20:59 07/13/18 20:11 James Silvestre MD Jul 14, 2018 07:33
[2018-07-14 08:00] VITALS: BP 122/61
[2018-07-14] MEDS: LORazepam 1mg tab ORAL SCH ×2 (08:08→17:23)
[2018-07-14] MEDS: Docusate 100mg cap ORAL SCH ×2 (08:08→17:22)
--- NOTE | 2018-07-14 08:41 | NUR ---
RECEIVED PATIENT IN BED AWAKE... PATIENT RESTLESS. TOLERATED ALL P.O. MEDICATIONS.. ASKING WHEN WILL SHE BE LEAVING TO HOME.. DISCHARGE PLANNING ORDERED NOTED.. NO ACUTE DISTRESS..DENIES NO PAIN OR DISCOMFORT GAIT IS STEADY.. OBSERVATION PRECAUTION FOR FALL RISK CALL LIGHT INR EACH
--- NOTE | 2018-07-14 11:08 | NUR ---
*-* INSURANCE *-* ALL CLINICALS AND REVIEWS HAVE BEEN FAXED TO: ROMEL Amezquita [phone] *[id number] F [phone]
[2018-07-14 12:00] VITALS: BP 121/64
--- NOTE | 2018-07-14 15:36 | NUR ---
SEEDLING PULLEROIL SEAL ASSEMBLER SI:ALTERED MENTAL STATUS VS: BP 105/63, P 61, T 97.3, RR 17, SpO2 96 IS:RISPERIDONE 3mg LITHIUM CARBONATE 600mg LORAZEPAM 1mg NICOTINE 1Patch MED/SURG STATUS
[2018-07-14 16:00] VITALS: BP 122/73
[2018-07-14 20:00] VITALS: BP 110/61
--- NOTE | 2018-07-14 21:21 | General Progress Note ---
Assessment/Plan Problem List: (1) Schizoaffective disorder, bipolar type ICD Codes: F25.0 - Schizoaffective disorder, bipolar type SNOMED: [id number] Assessment/Plan cont current meds provided ro/st Subjective Neurologic/Psychiatric: Reports: anxiety, depressed, emotional problems Allergies: Coded Allergies: No Known Allergies (Unverified , 06/08/18) Objective Last 24 Hour Vital Signs Date Time Temp Pulse Resp B/P (MAP) Pulse Ox O2 Delivery O2 Flow Rate FiO2 07/14/18 16:00 98.0 18 122/73 (89) 95 07/14/18 12:00 97.7 17 121/64 (83) 96 07/14/18 08:29 Room Air 07/14/18 08:00 97.3 18 122/61 (81) 97 07/14/18 04:00 98.3 72 16 105/63 (77) 98 07/14/18 00:00 97.8 61 15 121/69 (86) 95 07/13/18 22:18 Room Air Intake and Output 07/13/18 07/14/18 19:00 07:00 Intake Total 960 ml Balance 960 ml Intake Oral 960 ml # Voids 3 Height (Feet): 5 Height (Inches): 5.00 Weight (Pounds): 152 General Appearance: WD/WN, no apparent distress, alert Neurologic: depressed affect Bradford Randall MD Jul 14, 2018 21:21
--- NOTE | 2018-07-14 23:40 | NUR ---
RESTING IN BED,STATED"I AM DYING".DUE MEDS.GIVEN ,TAKEN.REMAINED ASLEEP,IN NO DISTRESS.
[2018-07-15] VITALS: BP 116/70
[2018-07-15 04:34] VITALS: BP 128/67
--- NOTE | 2018-07-15 07:33 | NUR ---
HAND-OFF: Report given to RUSH GORDON .
--- NOTE | 2018-07-15 07:35 | NUR ---
NURSE NOTES: received report from RUSH Bhatt. patient in bed. alert. disoriented. verbally responsive. no respiratory distress noted. no c/o pain at this time. bed in the lowest position . alarm on. call light within reach. will continue to monitor.
[2018-07-15 08:00] VITALS: BP 141/76
[2018-07-15] MEDS: Docusate 100mg cap ORAL SCH ×2 (08:35→18:00)
[2018-07-15] MEDS: LORazepam 1mg tab ORAL SCH ×2 (08:35→18:00)
--- NOTE | 2018-07-15 09:01 | Pulmonology Progress Note ---
Assessment/Plan Assessment/Plan IMPRESSION: 1. Mild leukocytosis. 2. Bipolar disorder. 3. Dementia. 4. Failure to comply with staff. DISCUSSION: Admitted to the hospital. Seen by Psychiatry. The patient will need placement. Discussed with hotel staff member Subjective Interval Events: none new Constitutional: Reports: no symptoms HEENT: Repors: no symptoms Respiratory: Reports: no symptoms Cardiovascular: Reports: no symptoms Gastrointestinal/Abdominal: Reports: no symptoms Allergies: Coded Allergies: No Known Allergies (Unverified , 06/08/18) Objective Last 24 Hour Vital Signs Date Time Temp Pulse Resp B/P (MAP) Pulse Ox O2 Delivery O2 Flow Rate FiO2 07/15/18 04:34 97.2 57 18 128/67 (87) 100 07/15/18 00:00 98.9 74 18 116/70 (85) 99 07/14/18 21:00 Room Air 07/14/18 20:00 97.9 65 18 110/61 (77) 98 07/14/18 16:00 98.0 18 122/73 (89) 95 07/14/18 12:00 97.7 17 121/64 (83) 96 Intake and Output 07/14/18 07/15/18 18:59 06:59 Intake Total 960 ml Balance 960 ml Intake Oral 960 ml General Appearance: no acute distress HEENT: normocephalic Respiratory/Chest: chest wall non-tender, lungs clear Cardiovascular: normal peripheral pulses, normal rate Abdomen: normal bowel sounds Current Medications Medications (Trade) Dose Ordered Sig/Marina Route PRN Reason Start Time Stop Time Status Last Admin Dose Admin Docusate Sodium (Colace) 100 mg TWICE A DAY ORAL 07/12/18 09:00 08/11/18 08:59 07/15/18 08:35 [place] Carbonate ([place] Carbonate) 300 mg DAILY ORAL 07/12/18 09:00 08/11/18 08:59 07/15/18 08:35 [place] Carbonate ([place] Carbonate) 600 mg BEDTIME ORAL 07/12/18 21:00 08/11/18 20:59 07/14/18 20:49 Lorazepam (Ativan) 1 mg BID ORAL 07/12/18 09:00 07/19/18 08:59 07/15/18 08:35 Nicotine (Nicoderm) 1 patch DAILY TDERMAL 07/12/18 09:00 08/11/18 08:59 07/15/18 08:35 Risperidone (RisperDAL) 3 mg BEDTIME ORAL 07/13/18 21:00 08/12/18 20:59 07/14/18 20:57 James Silvestre MD Jul 15, 2018 09:01
[2018-07-15 12:00] VITALS: BP 128/77
--- NOTE | 2018-07-15 14:26 | NUR ---
*-* INSURANCE *-* ALL CLINICALS AND REVIEWS HAVE BEEN FAXED TO: ROMEL Amezquita [phone] *[id number] F [phone]
--- NOTE | 2018-07-15 15:02 | NUR ---
NETWORK DESIGN ARCHITECTROD PULLER SI:ALTERED MENTAL STATUS . MILD LEUKOCYTOSIS VS: BP 141/76, P 575, T 97.2, RR 20, SpO2 100 IS: RISPERIDONE 3mg LITHIUM CARBONATE 600mg LORAZEPAM 1mg NICOTINE 1Patch MED/SURG STATUS
[2018-07-15] MEDS ORDERED: DiphenhydrAMINE 50mg/ml Inj IM SCH (15:15)
[2018-07-15] MEDS ORDERED: LORazepam Inj 2mg/ml 1ml IM SCH ×2 (15:15→15:25)
[2018-07-15 16:00] VITALS: BP 157/90
--- NOTE | 2018-07-15 16:06 | NUR ---
DISCHARGE PLANNING FAXED REFERRAL TO [facility]- FAX- WILL FOLLOW UP Addendum: 07/16/18 at 1219 by Rylee Rhodes LVN FOLLOWED UP WITH [facility] AND THEY ARE UNABLE TO ACCEPT PATIENT AT THIS TIME
--- NOTE | 2018-07-15 19:10 | NUR ---
HAND-OFF: Report given to ARELY Greenberg.
--- NOTE | 2018-07-15 19:26 | NUR ---
NURSE NOTES: RECEIVED PATIENT LYING IN BED, AWAKE, ALERT/ORIENTED TO PERSON/PLACE, REALITY ORIENTATION PROVIDED DURING ASSESSMENT, DENIES PAIN. NO SIGNS AND SYMPTOMS OF ACUTE CARDIO RESPIRATORY DISTRESS/SHORTNESS OF BREATH, DENIES CHEST PAIN, NO PERIPHERAL EDEMA NOTED. DENIES GI DISCOMFORT, NO N/V/D. SIDE RAILS UP X2 FOR MOBILITY, BED IN LOWEST POSITION FOR SAFETY. CALL LIGHT WITHIN REACH. NAD.
[2018-07-15 20:00] VITALS: BP 134/58
--- NOTE | 2018-07-15 22:03 | General Progress Note ---
Assessment/Plan Problem List: (1) Schizoaffective disorder, bipolar type ICD Codes: F25.0 - Schizoaffective disorder, bipolar type SNOMED: [id number] Status: stable Assessment/Plan cont current meds provided ro/st Subjective Neurologic/Psychiatric: Reports: anxiety, depressed, emotional problems Allergies: Coded Allergies: No Known Allergies (Unverified , 06/08/18) Objective Last 24 Hour Vital Signs Date Time Temp Pulse Resp B/P (MAP) Pulse Ox O2 Delivery O2 Flow Rate FiO2 07/15/18 20:14 Room Air 07/15/18 16:00 97.3 85 20 157/90 (112) 97 07/15/18 12:00 97.5 77 20 128/77 (94) 98 07/15/18 09:00 Room Air 07/15/18 08:00 97.5 76 20 141/76 (97) 100 07/15/18 04:34 97.2 57 18 128/67 (87) 100 07/15/18 00:00 98.9 74 18 116/70 (85) 99 Intake and Output 07/14/18 07/15/18 19:00 07:00 Intake Total 960 ml Balance 960 ml Intake Oral 960 ml Height (Feet): 5 Height (Inches): 5.00 Weight (Pounds): 152 General Appearance: WD/WN, alert, agitated Bradford Randall MD Jul 15, 2018 22:03
[2018-07-16] VITALS: BP 129/79
[2018-07-16 04:00] VITALS: BP 107/62
--- NOTE | 2018-07-16 06:29 | NUR ---
NURSE NOTES: RESTED WELL, NO SIGNIFICANT CHANGE OF CONDITION NOTED THROUGHOUT THE NIGHT. SAFETY MAINTAINED. NAD.
--- NOTE | 2018-07-16 07:30 | NUR ---
HAND-OFF: Report given to ARELY GONZALEZ.
--- NOTE | 2018-07-16 07:45 | NUR ---
NURSE NOTES: CONSTANTLY WALKING AND CRYING INTERMITTENTLY. PATIENT REPEATEDLY SAYING " I AM DYING". REORIENTATION AND REASSURANCE IMPLEMENTED. A/A/OX2. ABLE TO MAKE THINGS KNOWN. NO ACUTE RESP DISTRESS NOTED. PATIENT LOVES TO EAT. WILL CONT TO MONITOR.
[2018-07-16 08:00] VITALS: BP 111/62
--- NOTE | 2018-07-16 08:11 | Pulmonology Progress Note ---
Assessment/Plan Assessment/Plan IMPRESSION: 1. Mild leukocytosis. 2. Bipolar disorder. 3. Dementia. 4. Failure to comply with staff. DISCUSSION: Admitted to the hospital. Seen by Psychiatry. The patient will need placement. Discussed with director of midwifery/staff midwife Subjective Interval Events: None new Constitutional: Reports: no symptoms HEENT: Repors: no symptoms Respiratory: Reports: no symptoms Cardiovascular: Reports: no symptoms Gastrointestinal/Abdominal: Reports: no symptoms Genitourinary: Reports: no symptoms Allergies: Coded Allergies: No Known Allergies (Unverified , 06/08/18) Objective Last 24 Hour Vital Signs Date Time Temp Pulse Resp B/P (MAP) Pulse Ox O2 Delivery O2 Flow Rate FiO2 07/16/18 04:00 98.6 69 19 107/62 (77) 96 07/16/18 00:00 97.5 71 18 129/79 (96) 95 07/15/18 20:14 Room Air 07/15/18 20:00 97.7 74 18 134/58 (83) 95 07/15/18 16:00 97.3 85 20 157/90 (112) 97 07/15/18 12:00 97.5 77 20 128/77 (94) 98 07/15/18 09:00 Room Air Intake and Output 07/15/18 07/16/18 18:59 06:59 Intake Total 600 ml 600 ml Balance 600 ml 600 ml Intake Oral 600 ml 600 ml # Voids 4 3 General Appearance: no acute distress HEENT: normocephalic Respiratory/Chest: chest wall non-tender, lungs clear Cardiovascular: normal peripheral pulses, normal rate Abdomen: normal bowel sounds Current Medications Medications (Trade) Dose Ordered Sig/Marina Route PRN Reason Start Time Stop Time Status Last Admin Dose Admin Docusate Sodium (Colace) 100 mg TWICE A DAY ORAL 07/12/18 09:00 08/11/18 08:59 07/15/18 08:35 [place] Carbonate ([place] Carbonate) 300 mg DAILY ORAL 07/12/18 09:00 08/11/18 08:59 07/15/18 08:35 [place] Carbonate ([place] Carbonate) 600 mg BEDTIME ORAL 07/12/18 21:00 08/11/18 20:59 07/15/18 20:46 Lorazepam (Ativan) 1 mg BID ORAL 07/12/18 09:00 4/8/19 08:59 07/15/18 08:35 Nicotine (Nicoderm) 1 patch DAILY TDERMAL 07/12/18 09:00 08/11/18 08:59 07/15/18 08:35 Risperidone (RisperDAL) 4 mg BEDTIME ORAL 07/16/18 21:00 08/15/18 20:59 James Silvestre MD Jul 16, 2018 08:11
[2018-07-16] MEDS: LORazepam 1mg tab ORAL SCH ×2 (08:57→17:31)
[2018-07-16] MEDS: Docusate 100mg cap ORAL SCH ×2 (08:58→17:31)
--- NOTE | 2018-07-16 11:47 | NUR ---
Social Service Note SW spoke with Aydee at [facility] [phone], they only accept patient on Voluntary status. Patient wants to return to her facility. CM looking for SNF placement. Will monitor.
[2018-07-16 12:00] VITALS: BP 114/66
--- NOTE | 2018-07-16 12:06 | NUR ---
DISCHARGE PLANNING FAXED REFERRAL TO: [facility] T- F- [facility] T- F- WILL FOLLOW UP
--- NOTE | 2018-07-16 14:16 | NUR ---
HISTORIC INTERPRETERBRAND MARKETING MANAGER SI: ALTERED MENTAL STATUS . MILD LEUKOCYTOSIS VS: BP 107/62, P 69, T 97.5, RR 20, SpO2 98 IS: RISPERIDONE 3mg LITHIUM CARBONATE 600mg LORAZEPAM 1mg NICOTINE 1Patch MED/SURG STATUS
--- NOTE | 2018-07-16 16:02 | NUR ---
*-* INSURANCE *-* ALL CLINICALS AND REVIEWS HAVE BEEN FAXED TO: ROMEL Amezquita [phone] *[phone] F [phone]
--- NOTE | 2018-07-16 18:56 | NUR ---
HAND-OFF: Report given to Namrata.
--- NOTE | 2018-07-16 19:30 | NUR ---
NURSE NOTES: RECEIVED PATIENT LYING IN BED, AWAKE, ALERT/ORIENTED TO PERSON/PLACE, NOTED WITH PERIODS OF CONFUSION/FORGETFULNESS, REALITY ORIENTATION PROVIDED PRN. DENIES PAIN. NO SIGNS AND SYMPTOMS OF ACUTE CARDIO RESPIRATORY DISTRESS/SHORTNESS OF BREATH, DENIES CHEST PAIN, NO EDEMA NOTED. NO REPORT OF GI DISCOMFORT, NO N/V/D. SIDE RAIL UP X2, BED IN LOWEST POSITION FOR SAFETY. ENCOURAGED PATIENT TO UTILIZE CALL LIGHT FOR ASSISTANCE, VERBALIZED UNDERSTANDING. CONTINUE WITH CURRENT PLAN OF CARE. NAD.
[2018-07-16 20:00] VITALS: BP 122/74
--- NOTE | 2018-07-16 22:30 | General Progress Note ---
Assessment/Plan Problem List: (1) Schizoaffective disorder, bipolar type ICD Codes: F25.0 - Schizoaffective disorder, bipolar type SNOMED: [id number] Assessment/Plan cont current meds provided ro/st transfer to psych unit Subjective Neurologic/Psychiatric: Reports: anxiety, depressed, emotional problems Allergies: Coded Allergies: No Known Allergies (Unverified , 06/08/18) Objective Last 24 Hour Vital Signs Date Time Temp Pulse Resp B/P (MAP) Pulse Ox O2 Delivery O2 Flow Rate FiO2 07/16/18 20:58 Room Air 07/16/18 20:00 98.0 72 18 122/74 (90) 99 07/16/18 12:00 98.2 75 20 114/66 (82) 98 07/16/18 09:00 Room Air 07/16/18 08:00 98.6 73 20 111/62 (78) 98 07/16/18 04:00 98.6 69 19 107/62 (77) 96 07/16/18 00:00 97.5 71 18 129/79 (96) 95 Intake and Output 07/15/18 07/16/18 19:00 07:00 Intake Total 600 ml 600 ml Balance 600 ml 600 ml Intake Oral 600 ml 600 ml # Voids 4 3 Height (Feet): 5 Height (Inches): 5.00 Weight (Pounds): 152 General Appearance: WD/WN, alert, moderate distress Bradford Randall MD Jul 16, 2018 22:30
[2018-07-17 04:00] VITALS: BP 122/70
--- NOTE | 2018-07-17 07:30 | NUR ---
NURSE NOTES: RECEIVED PATIENT LYING IN BED, ASLEEP @ THIS TIME. AMBULATES. VERBALLY RESPONSIVE. NO C/O PAIN/DISCOMFORT NOTED. BED IS IN LOWEST POSITION POSSIBLE FOR SAFETY. BED IS ON LOCK MODE. NO SIGNS AND SYMPTOMS OF ACUTE-CARDIO RESPIRATORY DISTRESS/SHORTNESS OF BREATH. CRIES @ TIMES AND PERIODS OF ANXIETY. SIDE RAILS UP X3. CALL LIGHT WITHIN REACH. CONTINUE WITH CURRENT PLAN OF CARE.
--- NOTE | 2018-07-17 07:30 | NUR ---
HAND-OFF: Report given to kal ortiz.
[2018-07-17 08:00] VITALS: BP 115/65
[2018-07-17] MEDS: Docusate 100mg cap ORAL SCH ×2 (08:29→17:33)
[2018-07-17] MEDS: LORazepam 1mg tab ORAL SCH ×2 (08:29→17:33)
--- NOTE | 2018-07-17 10:02 | Pulmonology Progress Note ---
Assessment/Plan Assessment/Plan IMPRESSION: 1. Mild leukocytosis. 2. Bipolar disorder. 3. Dementia. 4. Failure to comply with staff. DISCUSSION: Admitted to the hospital. Seen by Psychiatry. The patient will need placement. DC planning today to [facility]. Discussed with senior staff accountant Subjective Interval Events: None new Constitutional: Reports: no symptoms HEENT: Repors: no symptoms Respiratory: Reports: no symptoms Cardiovascular: Reports: no symptoms Gastrointestinal/Abdominal: Reports: no symptoms Genitourinary: Reports: no symptoms Neurologic: Reports: no symptoms Allergies: Coded Allergies: No Known Allergies (Unverified , 06/08/18) Objective Last 24 Hour Vital Signs Date Time Temp Pulse Resp B/P (MAP) Pulse Ox O2 Delivery O2 Flow Rate FiO2 07/17/18 08:00 98.2 75 20 115/65 (82) 98 07/17/18 04:00 97.4 66 18 122/70 (87) 96 07/16/18 20:58 Room Air 07/16/18 20:00 98.0 72 18 122/74 (90) 99 07/16/18 12:00 98.2 75 20 114/66 (82) 98 Intake and Output 07/16/18 07/17/18 19:00 07:00 Intake Total 1340 ml 600 ml Balance 1340 ml 600 ml Intake Oral 1340 ml 600 ml # Voids 4 4 General Appearance: no acute distress HEENT: normocephalic Respiratory/Chest: chest wall non-tender, lungs clear Cardiovascular: normal peripheral pulses, normal rate Abdomen: normal bowel sounds, soft, non tender Extremities: no cyanosis Current Medications Medications (Trade) Dose Ordered Sig/Marina Route PRN Reason Start Time Stop Time Status Last Admin Dose Admin Docusate Sodium (Colace) 100 mg TWICE A DAY ORAL 07/12/18 09:00 08/11/18 08:59 07/17/18 08:29 [place] Carbonate ([place] Carbonate) 300 mg DAILY ORAL 07/12/18 09:00 08/11/18 08:59 07/17/18 08:29 [place] Carbonate ([place] Carbonate) 600 mg BEDTIME ORAL 07/12/18 21:00 08/11/18 20:59 07/16/18 20:58 Lorazepam (Ativan) 1 mg BID ORAL 07/12/18 09:00 07/19/18 08:59 07/17/18 08:29 Nicotine (Nicoderm) 1 patch DAILY TDERMAL 07/12/18 09:00 08/11/18 08:59 07/17/18 08:30 Risperidone (RisperDAL) 4 mg BEDTIME ORAL 07/16/18 21:00 08/15/18 20:59 07/16/18 20:58 James Silvestre MD Jul 17, 2018 10:02
--- NOTE | 2018-07-17 11:31 | NUR ---
CHARGE NURSE NOTES: OBTAINED ORDER FORM DR. PRAKASH TO DC PATIENT TO [facility] . REFERRAL SENT TO [facility]. AWAITING CONFIRMATION/ACCEPTANCE.
[2018-07-17 12:00] VITALS: BP 123/73
--- NOTE | 2018-07-17 12:40 | General Progress Note ---
Assessment/Plan Problem List: (1) Schizoaffective disorder, bipolar type ICD Codes: F25.0 - Schizoaffective disorder, bipolar type SNOMED: 89836854 Assessment/Plan cont current meds provided ro/st transfer to psych unit the pt is not on 5150 hold Subjective Neurologic/Psychiatric: Reports: anxiety, depressed, emotional problems Allergies: Coded Allergies: No Known Allergies (Unverified , 06/08/18) Subjective the pt is suicidal with intention to OD the pt is having AH Objective Last 24 Hour Vital Signs Date Time Temp Pulse Resp B/P (MAP) Pulse Ox O2 Delivery O2 Flow Rate FiO2 07/17/18 09:00 Room Air 07/17/18 08:00 98.2 75 20 115/65 (82) 98 07/17/18 04:00 97.4 66 18 122/70 (87) 96 07/16/18 20:58 Room Air 07/16/18 20:00 98.0 72 18 122/74 (90) 99 Intake and Output 07/16/18 07/17/18 18:59 06:59 Intake Total 1340 ml 600 ml Balance 1340 ml 600 ml Intake Oral 1340 ml 600 ml # Voids 4 4 Height (Feet): 5 Height (Inches): 5.00 Weight (Pounds): 152 General Appearance: WD/WN, alert, agitated Bradford Randall MD Jul 17, 2018 12:40
--- NOTE | 2018-07-17 14:40 | NUR ---
CASE MANAGEMENT: REVIEW 07/17/2018 SI:SCHIZOAFFECTIVE D/O T 98.2 HR 75 RR 18 B/P 123/73 SATS 96% ON RA NO LABS TODAY IS:LITHIUM CARBONATE PO BID RISPERDAL PO QHS ATIVAN PO BID MED/SURG STATUS PLAN OF CARE: DC PLANNING TO PSYCH FACILITY
--- NOTE | 2018-07-17 15:22 | NUR ---
NURSE NOTES: Accdg from Lorri @ [facility] patient is not eligible or candidate @ Psych unit due to past medical history of dementia and cognitive impairment. Patient needs to be able to voluntary sign papers. relayed to Imelda DASH. will cont to monitor.
--- NOTE | 2018-07-17 15:57 | NUR ---
NURSE NOTES: RAFITA FROM [facility] CALLED BACK FOR ROOM ASSIGNMENT TO ROOM 62. FOR REPORT CALL [phone] EXT [phone]. Addendum: 07/17/18 at 1845 by THEODORE JOYNER LVN report given to [facility].
[2018-07-17 16:00] VITALS: BP 118/69
--- NOTE | 2018-07-17 18:52 | NUR ---
NURSE NOTES: d/c patient to [facility] via ambulance. personal belongings noted. removed IV access. In stable condition. VSS and recorded.
--- NOTE | 2018-07-20 13:32 | Discharge Summary ---
Discharge Summary Discharge Summary _ DATE OF ADMISSION: July 12, 2018 DATE OF DISCHARGE: July 17, 2018 DISCHARGED BY: Dr. Silvestre REASON FOR ADMISSION: 62 years old female with past medical history of bipolar disorder, dementia, cognitive impairment, was sent from [facility] for failure to comply with the staff and paranoid behavior. Patient was not suicidal , but refused to take all her medications . Patient reported dry cough, but no fever or chills. No other medical symptoms. Upon evaluation , chest x-ray showed questionable mild interstitial prominence, if real could indicate mild interstitial congestion versus COPD changes. Patient was a known active smoker. Laboratory workup revealed mild leukocytosis WBC 12.6, stable hemoglobin and hematocrit, stable electrolytes and renal parameters. Troponin negative. Patient admitted for further management and placement. CONSULTANTS: psychiatrist [facility] COURSE: Patient admitted to medical surgical floor. Psychiatric evaluation was requested. Per psychiatrist patient had schizoaffective disorder bipolar type. Reality orientation and supportive therapy provided. Patient was not on 5150 hold. Current psychiatric medication were continued. Patient was receptive to taking medications. Transfer was arranged to psychiatric floor at [facility] for further management. FINAL DIAGNOSES: Schizoaffective disorder, bipolar type Mild leukocytosis Dementia Failure to comply with staff DISCHARGE MEDICATIONS: See Medication Reconciliation list. DISCHARGE INSTRUCTIONS: Patient was transferred to psychiatric floor at [facility] for further management. I have been assigned to dictate discharge summary for this account. I was not involved in the patient's management. Madiha Galarza NP Jul 20, 2018 13:32
== END 2018-07-17 19:00 | DRG 750 ==
LOC: EDBD 20:29 → EMR 21:00 → EDBEDREQ 07-12 01:48 → 4E 07-12 01:54 → OBSVTOIN 07-12 01:54 → 4E 07-12 03:30
DX: F25.0 Schizoaffective disorder, bipolar type (principal); F03.90 Unspecified dementia, unspecified severity, without behavioral disturbance, psychotic disturbance, mood disturbance, and anxiety; F17.200 Nicotine dependence, unspecified, uncomplicated; Z91.14 Patient's other noncompliance with medication regimen; R05 Cough
CPT/HCPCS: 36415; 71045; 80053; 80307; 80329; 81003; 82550; 84484; 85025; 87081; 93005; 96372; 96374; 99285